=== PATIENT | female | born 1985 | race Caucasian/White ===

== ENCOUNTER 2018-04-15 12:46 | Emergency (ER) | payer BC ==
[2018-04-15 12:52] VITALS: RESP 18
[2018-04-15] MEDS ORDERED: SODIUM CHLORIDE 0.9% 1,000 ML IV STA (13:29)
--- NOTE | 2018-04-15 13:45 | ED ---
Nausea/Vomiting/Diarrhea HPI - General Chief complaint: Nausea/Vomiting/Diarrhea Stated complaint: Diarrhea Time Seen by Provider: 04/15/18 13:29 Source: patient, RN notes reviewed Mode of arrival: ambulatory Limitations: no limitations - History of Present Illness Initial comments: This a 32-year-old female presents emergency Department chief complaint of diarrhea times one week. Patient states initially she was going all day she states she did she did try some Imodium had no relief so she called her PCP prescribed her Lomotil. She states that she did take it and distal to her diarrhea. She did call her PCP today as she was instructed to after one week and told him that he still had symptoms and she is advised to go to the emergency department. Patient states she occasionally has some abdominal cramping but denies any known fever, chills, melena hematochezia. Patient denies any dysuria hematuria. She is status post cholecystectomy in 2009. Patient denies any contacts with some her symptoms denies any recent traveling and no recent antibiotic use. - Related Data Home Medications Medication Instructions Recorded Confirmed Cyanocobalamin (Vitamin B-12) 1,000 mcg PO HS 04/15/18 04/15/18 [Vitamin B-12] Diphenox-Atrop 2.5-0.025 mg 1 - 2 tab PO QID PRN 04/15/18 04/15/18 [Lomotil] Levothyroxine Sodium [Synthroid] 150 mcg PO HS 04/15/18 04/15/18 Losartan [Cozaar] 25 mg PO HS 04/15/18 04/15/18 Norgestimate-Ethinyl Estradiol 1 tab PO HS 04/15/18 04/15/18 [Ortho Tri-Cyclen 28 Tablet] metFORMIN HCL [metFORMIN HCL ER] 1,500 mg PO HS 04/15/18 04/15/18 Allergies Allergy/AdvReac Type Severity Reaction Status Date / Time Sulfa (Sulfonamide Allergy Rash/Hives Verified 04/15/18 13:26 Antibiotics) Review of Systems ROS Statement: Those systems with pertinent positive or pertinent negative responses have been documented in the HPI. ROS Other: All systems not noted in ROS Statement are negative. Past Medical History Past Medical History: Diabetes Mellitus, Thyroid Disorder History of Any Multi-Drug Resistant Organisms: None Reported Past Surgical History: Cholecystectomy Past Psychological History: Depression Smoking Status: Never smoker Past Alcohol Use History: None Reported Past Drug Use History: None Reported General Exam Limitations: no limitations General appearance: alert, in no apparent distress Head exam: Present: atraumatic, normocephalic, normal inspection Respiratory exam: Present: normal lung sounds bilaterally. Absent: respiratory distress, wheezes, rales, rhonchi, stridor Cardiovascular Exam: Present: regular rate, normal rhythm, normal heart sounds. Absent: systolic murmur, diastolic murmur, rubs, gallop, clicks GI/Abdominal exam: Present: soft, normal bowel sounds. Absent: distended, tenderness, guarding, rebound, rigid Back exam: Absent: CVA tenderness (R), CVA tenderness (L) Skin exam: Present: warm, dry, intact, normal color. Absent: rash Course Vital Signs 04/15/18 12:49 Temperature 98.7 F Pulse Rate 75 Respiratory 18 Rate Blood Pressure 137/88 O2 Sat by Pulse 98 Oximetry Medical Decision Making - Medical Decision Making 32-year-old female presented for diarrhea. Patient had lab work was given IV hydration. Patient has normal lab work normal electrolytes. Patient was given a prescription for stool studies. She does have Lomotil at home and which she can take if needed. She may also try [id number] Pepto-Bismol. - Lab Data Result diagrams: 04/15/18 13:50 04/15/18 13:50 Lab Results 04/15/18 04/15/18 04/15/18 Range/Units 13:44 13:44 13:50 WBC (3.8-10.6) k/uL RBC (3.80-5.40) m/uL Hgb (11.4-16.0) gm/dL Hct (34.0-46.0) % MCV (80.0-100.0) fL MCH (25.0-35.0) pg MCHC (31.0-37.0) g/dL RDW (11.5-15.5) % Plt Count (150-450) k/uL Neutrophils % % Lymphocytes % % Monocytes % % Eosinophils % % Basophils % % Neutrophils # (1.3-7.7) k/uL Lymphocytes # (1.0-4.8) k/uL Monocytes # (0-1.0) k/uL Eosinophils # (0-0.7) k/uL Basophils # (0-0.2) k/uL Sodium 138 (137-145) mmol/L Potassium 4.2 (3.5-5.1) mmol/L Chloride 104 (98-107) mmol/L Carbon Dioxide 24 (22-30) mmol/L Anion Gap 10 mmol/L BUN 7 (7-17) mg/dL Creatinine 0.72 (0.52-1.04) mg/dL Est GFR (CKD-EPI)AfAm >90 (>60 ml/min/1.73 sqM) Est GFR (CKD-EPI)NonAf >90 (>60 ml/min/1.73 sqM) Glucose 140 H (74-99) mg/dL Calcium 9.6 (8.4-10.2) mg/dL Total Bilirubin 0.4 (0.2-1.3) mg/dL AST 62 H (14-36) U/L ALT 80 H (9-52) U/L Alkaline Phosphatase 72 (38-126) U/L Total Protein 7.2 (6.3-8.2) g/dL Albumin 4.3 (3.5-5.0) g/dL Amylase 64 (30-110) U/L Lipase 220 (23-300) U/L Urine Color Yellow Urine Appearance Clear (Clear) Urine pH 5.5 (5.0-8.0) Ur Specific [place] 1.015 (1.001-1.035) Urine Protein Trace H (Negative) Urine Glucose (UA) Negative (Negative) Urine Ketones 1+ H (Negative) Urine Blood Negative (Negative) Urine Nitrite Negative (Negative) Urine Bilirubin Negative (Negative) Urine Urobilinogen <2.0 (<2.0) mg/dL Ur Leukocyte Esterase Trace H (Negative) Urine RBC 1 (0-5) /hpf Urine WBC 3 (0-5) /hpf Ur Squamous Epith Cells 2 (0-4) /hpf Amorphous Sediment Rare H (None) /hpf Urine Bacteria Moderate H (None) /hpf Urine Mucus Few H (None) /hpf Urine HCG, Qual Not Detected (Not Detectd) 04/15/18 Range/Units 13:50 WBC 5.3 (3.8-10.6) k/uL RBC 4.50 (3.80-5.40) m/uL Hgb 13.2 (11.4-16.0) gm/dL Hct 39.4 (34.0-46.0) % MCV 87.6 (80.0-100.0) fL MCH 29.4 (25.0-35.0) pg MCHC 33.5 (31.0-37.0) g/dL RDW 13.3 (11.5-15.5) % Plt Count 243 (150-450) k/uL Neutrophils % 61 % Lymphocytes % 28 % Monocytes % 6 % Eosinophils % 1 % Basophils % 1 % Neutrophils # 3.2 (1.3-7.7) k/uL Lymphocytes # 1.5 (1.0-4.8) k/uL Monocytes # 0.3 (0-1.0) k/uL Eosinophils # 0.1 (0-0.7) k/uL Basophils # 0.1 (0-0.2) k/uL Sodium (137-145) mmol/L Potassium (3.5-5.1) mmol/L Chloride (98-107) mmol/L Carbon Dioxide (22-30) mmol/L Anion Gap mmol/L BUN (7-17) mg/dL Creatinine (0.52-1.04) mg/dL Est GFR (CKD-EPI)AfAm (>60 ml/min/1.73 sqM) Est GFR (CKD-EPI)NonAf (>60 ml/min/1.73 sqM) Glucose (74-99) mg/dL Calcium (8.4-10.2) mg/dL Total Bilirubin (0.2-1.3) mg/dL AST (14-36) U/L ALT (9-52) U/L Alkaline Phosphatase (38-126) U/L Total Protein (6.3-8.2) g/dL Albumin (3.5-5.0) g/dL Amylase (30-110) U/L Lipase (23-300) U/L Urine Color Urine Appearance (Clear) Urine pH (5.0-8.0) Ur Specific [place] (1.001-1.035) Urine Protein (Negative) Urine Glucose (UA) (Negative) Urine Ketones (Negative) Urine Blood (Negative) Urine Nitrite (Negative) Urine Bilirubin (Negative) Urine Urobilinogen (<2.0) mg/dL Ur Leukocyte Esterase (Negative) Urine RBC (0-5) /hpf Urine WBC (0-5) /hpf Ur Squamous Epith Cells (0-4) /hpf Amorphous Sediment (None) /hpf Urine Bacteria (None) /hpf Urine Mucus (None) /hpf Urine HCG, Qual (Not Detectd) Disposition Clinical Impression: Diarrhea Disposition: HOME SELF-CARE Condition: Stable Instructions: Acute Diarrhea (ED) Additional Instructions: Please return to the Emergency Department if symptoms worsen or any other concerns. Is patient prescribed a controlled substance at d/c from ED?: No Referrals: Wilbert Alonso MD [Primary Care Provider] - 1-2 days Time of Disposition: 14:45
[2018-04-15 14:06] LABS: Basophils # (A) 0.1 k/uL (0-0.2); Basophils % (A) 1 %; Eosinophils # (A) 0.1 k/uL (0-0.7); Eosinophils % (A) 1 %; HCT 39.4 % (34.0-46.0); HGB 13.2 gm/dL (11.4-16.0); Lymphocytes # (A) 1.5 k/uL (1.0-4.8); Lymphocytes % (A) 28 %; MCH 29.4 pg (25.0-35.0); MCHC 33.5 g/dL (31.0-37.0); MCV 87.6 fL (80.0-100.0); Mean Platelet Volume 7.6; Monocytes # (A) 0.3 k/uL (0-1.0); Monocytes % (A) 6 %; Neutrophils # (A) 3.2 k/uL (1.3-7.7); Neutrophils % (A) 61 %; Platelet Count 243 k/uL (150-450); RDW 13.3 % (11.5-15.5); WBC 5.3 k/uL (3.8-10.6)
[2018-04-15 14:14] LABS: Amorphous Sediment,Urine Rare /hpf; Appearance,Urine Clear (Clear); Bacteria,Urine Moderate /hpf; Bilirubin,Urine Negative (Negative); Blood,Urine Negative (Negative); Color,Urine Yellow; Glucose,Urine (UA) Negative (Negative); Ketones,Urine 1+ (Negative); Leukocyte Esterase,Urine Trace (Negative); Mucus,Urine Few /hpf; Nitrite,Urine Negative (Negative); PH, Urine 5.5 (5.0-8.0); Protein,Urine Trace (Negative); RBC,Urine 1 /hpf (0-5); Specific Gravity,Urine 1.015 (1.001-1.035); Squamous Epithelial Cell,Urine 2 /hpf (0-4); Urobilinogen,Urine <2.0 mg/dL (<2.0); WBC,Urine 3 /hpf (0-5)
[2018-04-15 14:18] LABS: ALT 80 U/L (9-52); AST 62 U/L (14-36); Albumin 4.3 g/dL (3.5-5.0); Alkaline Phosphatase 72 U/L (38-126); Amylase 64 U/L (30-110); Anion Gap 10 mmol/L; Blood Urea Nitrogen 7 mg/dL (7-17); Calcium 9.6 mg/dL (8.4-10.2); Carbon Dioxide 24 mmol/L (22-30); Chloride 104 mmol/L (98-107); Glucose 140 mg/dL (74-99); Lipase 220 U/L (23-300); Potassium 4.2 mmol/L (3.5-5.1); Sodium 138 mmol/L (137-145); Total Bilirubin 0.4 mg/dL (0.2-1.3); Total Protein 7.2 g/dL (6.3-8.2)
[2018-04-15 15:00] VITALS: BP 116/71; PULSE 80; TEMP 98.3
== END 2018-04-15 15:00 | disposition home or self-care (01) ==
LOC: EC 12:46
DX: R19.7 Diarrhea, unspecified (principal); E11.9 Type 2 diabetes mellitus without complications; E07.9 Disorder of thyroid, unspecified; F32.9 Major depressive disorder, single episode, unspecified; Z79.84 Long term (current) use of oral hypoglycemic drugs; Z79.899 Other long term (current) drug therapy; Z88.2 Allergy status to sulfonamides; Z90.49 Acquired absence of other specified parts of digestive tract
CPT/HCPCS: 36415; 80053; 81001; 81025; 82150; 83690; 85025; 96360; 99284

== ENCOUNTER 2020-08-20 11:28 | Emergency (ER) | payer MEDICAID, BC ==
[2020-08-20 11:46] VITALS: RESP 18
[2020-08-20] MEDS ORDERED: SODIUM CHLORIDE 0.9% 500 ML 500 ML IV STA (11:57)
[2020-08-20] MEDS ORDERED: ACETAMINOPHEN TAB 500 MG TAB PO STA (11:57)
[2020-08-20 12:51] LABS: Appearance,Urine Clear (Clear); Bacteria,Urine Many /hpf; Bilirubin,Urine Negative (Negative); Blood,Urine Moderate (Negative); Color,Urine Yellow; Glucose,Urine (UA) Negative (Negative); Ketones,Urine Negative (Negative); Leukocyte Esterase,Urine Negative (Negative); Mucus,Urine Many /hpf; Nitrite,Urine Negative (Negative); PH, Urine 5.5 (5.0-8.0); Protein,Urine 1+ (Negative); RBC,Urine 3 /hpf (0-5); Specific Gravity,Urine 1.035 (1.001-1.035); Squamous Epithelial Cell,Urine 2 /hpf (0-4); Urobilinogen,Urine <2.0 mg/dL (<2.0); WBC,Urine 2 /hpf (0-5)
[2020-08-20 12:52] LABS: Basophils % (A) 1 %; Eosinophils % (A) 0 %; HCT 43.7 % (34.0-46.0); HGB 14.7 gm/dL (11.4-16.0); Lymphocytes # (A) 0.6 k/uL (1.0-4.8); Lymphocytes % (A) 17 %; MCH 30.4 pg (25.0-35.0); MCHC 33.8 g/dL (31.0-37.0); MCV 90.1 fL (80.0-100.0); Mean Platelet Volume 8.9; Monocytes # (A) 0.2 k/uL (0-1.0); Monocytes % (A) 4 %; Neutrophils # (A) 2.9 k/uL (1.3-7.7); Neutrophils % (A) 76 %; Platelet Count 135 k/uL (150-450); RBC 4.85 m/uL (3.80-5.40); RDW 12.3 % (11.5-15.5); WBC 3.8 k/uL (3.8-10.6)
[2020-08-20] MEDS ORDERED: IBUPROFEN 600 MG TAB PO STA (12:57)
[2020-08-20 12:58] LABS: ALT 86 U/L (4-34); AST 86 U/L (14-36); African American GFR (CKD) >90 (>60 ml/min/1.73 sqM); Albumin 4.3 g/dL (3.5-5.0); Alkaline Phosphatase 81 U/L (38-126); Anion Gap 9 mmol/L; Blood Urea Nitrogen 10 mg/dL (7-17); Carbon Dioxide 23 mmol/L (22-30); Chloride 104 mmol/L (98-107); Glucose 247 mg/dL (74-99); Non-African American GFR(CKD) >90 (>60 ml/min/1.73 sqM); Potassium 4.2 mmol/L (3.5-5.1); Sodium 136 mmol/L (137-145); Total Bilirubin 0.6 mg/dL (0.2-1.3); Total Protein 7.6 g/dL (6.3-8.2)
--- NOTE | 2020-08-20 12:58 | ED ---
General Adult HPI - General Chief complaint: Upper Respiratory Infection Stated complaint: SOB Time Seen by Provider: 08/20/20 11:47 Source: patient, RN notes reviewed Mode of arrival: ambulatory Limitations: no limitations - History of Present Illness Initial comments: 34-year-old female presents to the emergency department for a chief complaint of cough and weakness. Patient reports that about one week ago she started to have a lot of body aches and chills. Patient reports she developed a dry cough. She states she felt somewhat short of breath. She states she has had fevers up to 100 throughout the week but they generally go away on their own without medication. Patient has not taken Motrin or Tylenol today. Patient tested negative for Covid on August 17. Patient has no other complaints at this time including shortness of breath, chest pain, abdominal pain, nausea or vomiting, headache, or visual changes. - Related Data Home Medications Medication Instructions Recorded Confirmed Levothyroxine Sodium [Synthroid] 150 mcg PO HS 04/15/18 04/15/18 metFORMIN HCL [metFORMIN HCL ER] 1,500 mg PO HS 04/15/18 04/15/18 Candesartan Cilexetil 12 mg PO DAILY 08/20/20 08/20/20 Dulaglutide [Trulicity] 1.5 mg SQ INGRAM 08/20/20 08/20/20 Levothyroxine Sodium [Synthroid] 175 mcg PO MOTH 08/20/20 08/20/20 Previous Rx's Medication Instructions Recorded Benzonatate [Tessalon Perles] 200 mg PO Q8H PRN #15 capsule 08/20/20 Allergies Allergy/AdvReac Type Severity Reaction Status Date / Time Sulfa (Sulfonamide Allergy Rash/Hives Verified 08/20/20 13:49 Antibiotics) Review of Systems ROS Statement: Those systems with pertinent positive or pertinent negative responses have been documented in the HPI. ROS Other: All systems not noted in ROS Statement are negative. Past Medical History Past Medical History: Diabetes Mellitus, Thyroid Disorder History of Any Multi-Drug Resistant Organisms: None Reported Past Surgical History: Cholecystectomy Past Psychological History: Depression Smoking Status: Never smoker Past Alcohol Use History: None Reported Past Drug Use History: None Reported General Exam Limitations: no limitations General appearance: alert, in no apparent distress Head exam: Present: atraumatic, normocephalic, normal inspection Eye exam: Present: normal appearance, PERRL, EOMI. Absent: scleral icterus, conjunctival injection, periorbital swelling ENT exam: Present: normal exam, mucous membranes moist Neck exam: Present: normal inspection, full ROM. Absent: tenderness, meningismu s, lymphadenopathy Respiratory exam: Present: normal lung sounds bilaterally. Absent: respiratory distress, wheezes, rales, rhonchi, stridor Cardiovascular Exam: Present: regular rate, normal rhythm, normal heart sounds. Absent: bradycardia, tachycardia, irregular rhythm GI/Abdominal exam: Present: soft, normal bowel sounds. Absent: distended, tenderness, guarding, rebound, rigid Neurological exam: Present: alert Course Vital Signs 08/20/20 11:43 Temperature 99.6 F Pulse Rate 119 H Respiratory 18 Rate Blood Pressure 115/82 O2 Sat by Pulse 95 Oximetry EKG Findings - EKG Comments: EKG Findings:: Sinus tachycardia, ventricular rate 101, RI interval 160, QTC 433 Medical Decision Making - Medical Decision Making Vitals are stable. Patient presented with a temperature of 100.8 when I rechecked it. Pulse rate of 119 is reflexive to fever. Patient is well- appearing. She is oxygenating at 95%. Patient was recently negative for Covid 3 days ago. Lung sounds are clear today. No respiratory distress. CBC unremarkable. CMP did show hyperglycemia with a glucose of 247. Patient does take metformin and has a history of NIDDM. Urinalysis unremarkable. Influenza is negative. Chest x-ray shows no acute cardiopulmonary process. There is a 1.6 cm right suprahilar nodule, recommending follow-up chest CT. I did discuss with this patient and she will follow-up. I will repeat patient's Covid test t christopher as well. I recommended she continue Motrin and Tylenol for fevers and return if she has any worsening symptoms such as increased shortness of breath. I discussed this case with attending Dr. Cabrera who agrees with this assessment and treatment plan. - Lab Data Result diagrams: 08/20/20 12:13 08/20/20 12:13 Lab Results 08/20/20 08/20/20 08/20/20 Range/Units 12:13 12:13 12:13 WBC 3.8 (3.8-10.6) k/uL RBC 4.85 (3.80-5.40) m/uL Hgb 14.7 (11.4-16.0) gm/dL Hct 43.7 (34.0-46.0) % MCV 90.1 (80.0-100.0) fL MCH 30.4 (25.0-35.0) pg MCHC 33.8 (31.0-37.0) g/dL RDW 12.3 (11.5-15.5) % Plt Count 135 L (150-450) k/uL MPV 8.9 Neutrophils % 76 % Lymphocytes % 17 % Monocytes % 4 % Eosinophils % 0 % Basophils % 1 % Neutrophils # 2.9 (1.3-7.7) k/uL Lymphocytes # 0.6 L (1.0-4.8) k/uL Monocytes # 0.2 (0-1.0) k/uL Eosinophils # 0.0 (0-0.7) k/uL Basophils # 0.0 (0-0.2) k/uL D-Dimer 0.50 (<0.60) mg/L FEU Sodium (137-145) mmol/L Potassium (3.5-5.1) mmol/L Chloride (98-107) mmol/L Carbon Dioxide (22-30) mmol/L Anion Gap mmol/L BUN (7-17) mg/dL Creatinine (0.52-1.04) mg/dL Est GFR (CKD-EPI)AfAm (>60 ml/min/1.73 sqM) Est GFR (CKD-EPI)NonAf (>60 ml/min/1.73 sqM) Glucose (74-99) mg/dL Calcium (8.4-10.2) mg/dL Total Bilirubin (0.2-1.3) mg/dL AST (14-36) U/L ALT (4-34) U/L Alkaline Phosphatase (38-126) U/L Troponin I (0.000-0.034) ng/mL Total Protein (6.3-8.2) g/dL Albumin (3.5-5.0) g/dL Urine Color Yellow Urine Appearance Clear (Clear) Urine pH 5.5 (5.0-8.0) Ur Specific [place] 1.035 (1.001-1.035) Urine Protein 1+ H (Negative) Urine Glucose (UA) Negative (Negative) Urine Ketones Negative (Negative) Urine Blood Moderate H (Negative) Urine Nitrite Negative (Negative) Urine Bilirubin Negative (Negative) Urine Urobilinogen <2.0 (<2.0) mg/dL Ur Leukocyte Esterase Negative (Negative) Urine RBC 3 (0-5) /hpf Urine WBC 2 (0-5) /hpf Ur Squamous Epith Cells 2 (0-4) /hpf Urine Bacteria Many H (None) /hpf Urine Mucus Many H (None) /hpf Urine HCG, Qual (Not Detectd) Influenza Type A RNA (Not Detectd) Influenza Type B (PCR) (Not Detectd) 08/20/20 08/20/20 08/20/20 Range/Units 12:13 12:13 12:13 WBC (3.8-10.6) k/uL RBC (3.80-5.40) m/uL Hgb (11.4-16.0) gm/dL Hct (34.0-46.0) % MCV (80.0-100.0) fL MCH (25.0-35.0) pg MCHC (31.0-37.0) g/dL RDW (11.5-15.5) % Plt Count (150-450) k/uL MPV Neutrophils % % Lymphocytes % % Monocytes % % Eosinophils % % Basophils % % Neutrophils # (1.3-7.7) k/uL Lymphocytes # (1.0-4.8) k/uL Monocytes # (0-1.0) k/uL Eosinophils # (0-0.7) k/uL Basophils # (0-0.2) k/uL D-Dimer (<0.60) mg/L FEU Sodium 136 L (137-145) mmol/L Potassium 4.2 (3.5-5.1) mmol/L Chloride 104 (98-107) mmol/L Carbon Dioxide 23 (22-30) mmol/L Anion Gap 9 mmol/L BUN 10 (7-17) mg/dL Creatinine 0.72 (0.52-1.04) mg/dL Est GFR (CKD-EPI)AfAm >90 (>60 ml/min/1.73 sqM) Est GFR (CKD-EPI)NonAf >90 (>60 ml/min/1.73 sqM) Glucose 247 H (74-99) mg/dL Calcium 9.0 (8.4-10.2) mg/dL Total Bilirubin 0.6 (0.2-1.3) mg/dL AST 86 H (14-36) U/L ALT 86 H (4-34) U/L Alkaline Phosphatase 81 (38-126) U/L Troponin I <0.012 (0.000-0.034) ng/mL Total Protein 7.6 (6.3-8.2) g/dL Albumin 4.3 (3.5-5.0) g/dL Urine Color Urine Appearance (Clear) Urine pH (5.0-8.0) Ur Specific [place] (1.001-1.035) Urine Protein (Negative) Urine Glucose (UA) (Negative) Urine Ketones (Negative) Urine Blood (Negative) Urine Nitrite (Negative) Urine Bilirubin (Negative) Urine Urobilinogen (<2.0) mg/dL Ur Leukocyte Esterase (Negative) Urine RBC (0-5) /hpf Urine WBC (0-5) /hpf Ur Squamous Epith Cells (0-4) /hpf Urine Bacteria (None) /hpf Urine Mucus (None) /hpf Urine HCG, Qual (Not Detectd) Influenza Type A RNA Not Detected (Not Detectd) Influenza Type B (PCR) Not Detected (Not Detectd) 08/20/20 Range/Units 12:13 WBC (3.8-10.6) k/uL RBC (3.80-5.40) m/uL Hgb (11.4-16.0) gm/dL Hct (34.0-46.0) % MCV (80.0-100.0) fL MCH (25.0-35.0) pg MCHC (31.0-37.0) g/dL RDW (11.5-15.5) % Plt Count (150-450) k/uL MPV Neutrophils % % Lymphocytes % % Monocytes % % Eosinophils % % Basophils % % Neutrophils # (1.3-7.7) k/uL Lymphocytes # (1.0-4.8) k/uL Monocytes # (0-1.0) k/uL Eosinophils # (0-0.7) k/uL Basophils # (0-0.2) k/uL D-Dimer (<0.60) mg/L FEU Sodium (137-145) mmol/L Potassium (3.5-5.1) mmol/L Chloride (98-107) mmol/L Carbon Dioxide (22-30) mmol/L Anion Gap mmol/L BUN (7-17) mg/dL Creatinine (0.52-1.04) mg/dL Est GFR (CKD-EPI)AfAm (>60 ml/min/1.73 sqM) Est GFR (CKD-EPI)NonAf (>60 ml/min/1.73 sqM) Glucose (74-99) mg/dL Calcium (8.4-10.2) mg/dL Total Bilirubin (0.2-1.3) mg/dL AST (14-36) U/L ALT (4-34) U/L Alkaline Phosphatase (38-126) U/L Troponin I (0.000-0.034) ng/mL Total Protein (6.3-8.2) g/dL Albumin (3.5-5.0) g/dL Urine Color Urine Appearance (Clear) Urine pH (5.0-8.0) Ur Specific [place] (1.001-1.035) Urine Protein (Negative) Urine Glucose (UA) (Negative) Urine Ketones (Negative) Urine Blood (Negative) Urine Nitrite (Negative) Urine Bilirubin (Negative) Urine Urobilinogen (<2.0) mg/dL Ur Leukocyte Esterase (Negative) Urine RBC (0-5) /hpf Urine WBC (0-5) /hpf Ur Squamous Epith Cells (0-4) /hpf Urine Bacteria (None) /hpf Urine Mucus (None) /hpf Urine HCG, Qual Not Detected (Not Detectd) Influenza Type A RNA (Not Detectd) Influenza Type B (PCR) (Not Detectd) Disposition Clinical Impression: Cough Disposition: HOME SELF-CARE Condition: Good Instructions (If sedation given, give patient instructions): Upper Respiratory Infection (ED) Additional Instructions: Please take cough medication as directed. Drink plenty of fluids. Take Motrin and Tylenol as needed for fever. Follow-up with your doctor in one to 2 days. Return to the emergency room for any worsening symptoms. Continue to quarantine until symptoms improve. Prescriptions: Benzonatate [Tessalon Perles] 200 mg PO Q8H PRN #15 capsule PRN Reason: Cough Is patient prescribed a controlled substance at d/c from ED?: No Referrals: Akosua,Joe, DO [Primary Care Provider] - 1-2 days Time of Disposition: 13:50
--- NOTE | 2020-08-20 13:17 | XR ---
EXAMINATION TYPE: XR chest 2V DATE OF EXAM: 08/20/2020 CLINICAL HISTORY: Body aches and fatigue. TECHNIQUE: Frontal and lateral views of the chest are obtained. COMPARISON: None FINDINGS: There is mild reticular interstitial changes without suspicious focal air space opacity, p leural effusion, or pneumothorax seen. There is 1.6 cm right suprahilar nodule on frontal view less well seen on lateral view. Follow-up chest CT should be considered. The cardiac silhouette size is wi thin normal limits. The osseous structures are intact. IMPRESSION: No acute cardiopulmonary process.
[2020-08-20 13:50] VITALS: BP 109/65; PULSE 86; TEMP 98.1
== END 2020-08-20 14:23 | disposition home or self-care (01) ==
LOC: EC 11:28
DX: U07.1 COVID-19 (principal); E11.65 Type 2 diabetes mellitus with hyperglycemia; R91.1 Solitary pulmonary nodule; E07.9 Disorder of thyroid, unspecified; Z79.890 Hormone replacement therapy; Z79.84 Long term (current) use of oral hypoglycemic drugs; Z79.899 Other long term (current) drug therapy; Z88.2 Allergy status to sulfonamides
CPT/HCPCS: 36415; 93005; 85379; 80053; 84484; 85025; 81001; 81025; 87502; 71046; 99284; 96360; U0003

== ENCOUNTER 2020-08-24 14:00 | Inpatient (IN) | payer MEDICAID, BC ==
[2020-08-24] MEDS ORDERED: ACETAMINOPHEN TAB 325 MG TAB PO STA (14:19)
[2020-08-24] MEDS ORDERED: SODIUM CHLORIDE 0.9% 500 ML 500 ML IV ONE (14:19)
[2020-08-24] MEDS ORDERED: SODIUM CHLORIDE 0.9% 1,000 ML IV ONE ×2 (14:19→15:25)
--- NOTE | 2020-08-24 14:52 | XR ---
EXAMINATION TYPE: XR chest 1V portable DATE OF EXAM: 08/24/2020 COMPARISON: 08/20/2020 HISTORY: Increased shortness of breath TECHNIQUE: Single frontal view of the chest is obtained. FINDINGS: There is subsegmental consolidation at the left lung base with a slightly prominent centra l interstitium in a 1.5 cm nodule the right upper lobe. Stable from prior exam. No pneumothorax. No o vert failure. IMPRESSION: 1. 1.5 cm right upper lobe mass. A chest recommended on a short-term basis. 2. Basilar infiltrate versus atelectasis correlate for early pneumonia.
[2020-08-24 14:56] LABS: Basophils % (A) 1 %; Eosinophils % (A) 1 %; HGB 14.4 gm/dL (11.4-16.0); Lymphocytes # (A) 0.7 k/uL (1.0-4.8); Lymphocytes % (A) 18 %; MCH 29.9 pg (25.0-35.0); MCHC 32.6 g/dL (31.0-37.0); MCV 91.6 fL (80.0-100.0); Mean Platelet Volume 8.5; Monocytes # (A) 0.2 k/uL (0-1.0); Monocytes % (A) 5 %; Neutrophils % (A) 74 %; Platelet Count 240 k/uL (150-450); RDW 12.7 % (11.5-15.5)
[2020-08-24 15:07] LABS: ALT 57 U/L (4-34); AST 47 U/L (14-36); African American GFR (CKD) >90 (>60 ml/min/1.73 sqM); Albumin 4.3 g/dL (3.5-5.0); Alkaline Phosphatase 86 U/L (38-126); Anion Gap 12 mmol/L; Blood Urea Nitrogen 16 mg/dL (7-17); C Reactive Protein 43.4 mg/L (<10.0); Calcium 10.2 mg/dL (8.4-10.2); Carbon Dioxide 22 mmol/L (22-30); Chloride 104 mmol/L (98-107); LDH 559 U/L (313-618); Non-African American GFR(CKD) >90 (>60 ml/min/1.73 sqM); Potassium 4.8 mmol/L (3.5-5.1); Sodium 138 mmol/L (137-145); Total Bilirubin 0.6 mg/dL (0.2-1.3); Total Protein 7.7 g/dL (6.3-8.2)
[2020-08-24 15:11] LABS: Glucose 578 mg/dL (74-99)
[2020-08-24 15:12] LABS: Appearance,Urine Clear (Clear); Bilirubin,Urine Negative (Negative); Blood,Urine Negative (Negative); Color,Urine Light Yellow; Glucose,Urine (UA) 4+ (Negative); Ketones,Urine 1+ (Negative); Leukocyte Esterase,Urine Negative (Negative); Nitrite,Urine Negative (Negative); PH, Urine 5.5 (5.0-8.0); Protein,Urine Trace (Negative); Specific Gravity,Urine 1.036 (1.001-1.035); Urobilinogen,Urine <2.0 mg/dL (<2.0)
[2020-08-24 15:17] LABS: D-Dimer 0.31 mg/L FEU (<0.60); INR 0.9 (<1.2); Partial Thromboplastin Time 22.8 sec (22.0-30.0); Prothrombin Time 9.5 sec (9.0-12.0)
[2020-08-24] MEDS ORDERED: INSULIN REGULAR 100 UNIT/ML VIAL IV ONE (15:25)
--- NOTE | 2020-08-24 15:27 | ED ---
SOB HPI - General Chief Complaint: Shortness of Breath Stated Complaint: SOB COVID+ Time Seen by Provider: 08/24/20 14:06 Source: patient Mode of arrival: ambulatory Limitations: no limitations - History of Present Illness Initial Comments: 34-year-old female presents today for chief complaint of shortness of breath, cold with positive. Patient states she's had increasing shortness of breath since she's been diagnosed with Coban. She states she has a cough and at times chest pain she denies current chest pain she denies hemoptysis leg swelling. Sh e denies nausea vomiting abdominal pain but admits to loose stools. Patient states she has decreased taste and smell patient states she has not been sleeping well for the past 3 nights. Patient states she is a diabetic type II takes metformin and has been on steroids lately for the Coban 19 infection. Patient states she does not check her sugars daily. Remaining review of system negative - Related Data Home Medications Medication Instructions Recorded Confirmed Levothyroxine Sodium [Synthroid] 150 mcg PO [id number] 04/15/18 08/24/20 metFORMIN HCL [metFORMIN HCL ER] 750 mg PO BID 04/15/18 08/24/20 Candesartan Cilexetil 12 mg PO DAILY 08/20/20 08/24/20 Dulaglutide [Trulicity] 1.5 mg SQ INGRAM 08/20/20 08/24/20 Levothyroxine Sodium [Synthroid] 175 mcg PO MOTH 08/20/20 08/24/20 Albuterol Inhaler [Ventolin Hfa 2 puff INHALATION RT-QID 08/24/20 08/24/20 Inhaler] Azithromycin [Zithromax Z-pack (6 See Taper PO DIRECTED 08/24/20 08/24/20 tabs)] methylPREDNISolone [Medrol Dose See Taper PO DIRECTED 08/24/20 08/24/20 Pack] Previous Rx's Medication Instructions Recorded Benzonatate [Tessalon Perles] 200 mg PO Q8H PRN #15 capsule 08/20/20 Allergies Allergy/AdvReac Type Severity Reaction Status Date / Time Sulfa (Sulfonamide Allergy Rash/Hives Verified 08/24/20 15:33 Antibiotics) Review of Systems ROS Statement: Those systems with pertinent positive or pertinent negative responses have been documented in the HPI. ROS Other: All systems not noted in ROS Statement are negative. Past Medical History Past Medical History: Diabetes Mellitus, Thyroid Disorder History of Any Multi-Drug Resistant Organisms: None Reported Past Surgical History: Cholecystectomy Past Psychological History: Depression Smoking Status: Never smoker Past Alcohol Use History: None Reported Past Drug Use History: None Reported General Exam - General Exam Comments Initial Comments: General: The patient is awake and alert Eye: Pupils are equal, round and reactive to light, extra-ocular movements are intact. No nystagmus. There is normal conjunctiva bilaterally. No signs of icterus. Ears, nose, mouth and throat: There are moist mucous membranes and no oral lesions. Neck: The neck is supple, there is no tenderness or JVD. Cardiovascular: There is a regular rate and rhythm. No murmur, rub or gallop is appreciated. Respiratory: Lung sounds diminished throughout. respirations are mildly- labored, breath sounds are equal. No wheezes, stridor, rales. Rhonchi Gastrointestinal: Soft, non-distended, non-tender abdomen without masses or organomegaly noted. There is no rebound or guarding present. Musculoskeletal: Normal ROM, no tenderness. Strength 5/5. Sensation intact. Radial and DP pulses equal bilaterally 2+. Neurological: A&O x 3. CN II-XII intact, There are no obvious motor or sensory deficits. Coordination appears grossly intact. Speech is normal. Skin: Skin is warm and dry and no rashes or lesions are noted. No calf pain LE edema or calf swelling Psychiatric: Cooperative, appropriate mood & affect, normal judgment. Limitations: no limitations Course Vital Signs 08/24/20 08/24/20 14:01 15:48 Temperature 98.3 F 98.7 F Pulse Rate 121 H 80 Respiratory 24 18 Rate Blood Pressure 140/83 126/91 O2 Sat by Pulse 91 L 98 Oximetry Medical Decision Making - Medical Decision Making covid +. dyspnea. Sugar elevated, pt recently prescribed steroids, and is DMII. Patient Givne insulin. acetone (-). mild elevation of gap. pt given IVF. Patient glucose will be monitored as well as oxygen saturation and respiratory status. pt agreeable to admission as is attending provider Dr. Moon Ventricular rate 86 bpm, WA interval 168 ms, QRS latter day 96 ms, QT/QTC 352/421 ms. This is normal sinus no ST elevation or depression is appreciated. - Lab Data Result diagrams: 08/24/20 14:34 08/24/20 14:34 Lab Results 08/24/20 08/24/20 08/24/20 Range/Units 14:34 14:34 14:34 WBC 4.0 (3.8-10.6) k/uL RBC 4.80 (3.80-5.40) m/uL Hgb 14.4 (11.4-16.0) gm/dL Hct 44.0 (34.0-46.0) % MCV 91.6 (80.0-100.0) fL MCH 29.9 (25.0-35.0) pg MCHC 32.6 (31.0-37.0) g/dL RDW 12.7 (11.5-15.5) % Plt Count 240 (150-450) k/uL MPV 8.5 Neutrophils % 74 % Lymphocytes % 18 % Monocytes % 5 % Eosinophils % 1 % Basophils % 1 % Neutrophils # 3.0 (1.3-7.7) k/uL Lymphocytes # 0.7 L (1.0-4.8) k/uL Monocytes # 0.2 (0-1.0) k/uL Eosinophils # 0.0 (0-0.7) k/uL Basophils # 0.0 (0-0.2) k/uL PT 9.5 (9.0-12.0) sec INR 0.9 (<1.2) APTT 22.8 (22.0-30.0) sec D-Dimer 0.31 (<0.60) mg/L FEU Sodium 138 (137-145) mmol/L Potassium 4.8 (3.5-5.1) mmol/L Chloride 104 (98-107) mmol/L Carbon Dioxide 22 (22-30) mmol/L Anion Gap 12 mmol/L BUN 16 (7-17) mg/dL Creatinine 0.66 (0.52-1.04) mg/dL Est GFR (CKD-EPI)AfAm >90 (>60 ml/min/1.73 sqM) Est GFR (CKD-EPI)NonAf >90 (>60 ml/min/1.73 sqM) Glucose 578 H* (74-99) mg/dL POC Glucose (mg/dL) (75-99) mg/dL POC Glu Client Engagement Specialist ID Lactic Ac Sepsis Rflx Plasma Lactic Acid Anthony (0.7-2.0) mmol/L Calcium 10.2 (8.4-10.2) mg/dL Magnesium 2.0 (1.6-2.3) mg/dL Total Bilirubin 0.6 (0.2-1.3) mg/dL AST 47 H (14-36) U/L ALT 57 H (4-34) U/L Alkaline Phosphatase 86 (38-126) U/L Lactate Dehydrogenase 559 (313-618) U/L Troponin I (0.000-0.034) ng/mL C-Reactive Protein 43.4 H (<10.0) mg/L Total Protein 7.7 (6.3-8.2) g/dL Albumin 4.3 (3.5-5.0) g/dL Urine Color Urine Appearance (Clear) Urine pH (5.0-8.0) Ur Specific Winston (1.001-1.035) Urine Protein (Negative) Urine Glucose (UA) (Negative) Urine Ketones (Negative) Urine Blood (Negative) Urine Nitrite (Negative) Urine Bilirubin (Negative) Urine Urobilinogen (<2.0) mg/dL Ur Leukocyte Esterase (Negative) Urine HCG, Qual (Not Detectd) Acetone, Qual Negative (Negative) 08/24/20 08/24/20 08/24/20 Range/Units 14:34 14:34 14:41 WBC (3.8-10.6) k/uL RBC (3.80-5.40) m/uL Hgb (11.4-16.0) gm/dL Hct (34.0-46.0) % MCV (80.0-100.0) fL MCH (25.0-35.0) pg MCHC (31.0-37.0) g/dL RDW (11.5-15.5) % Plt Count (150-450) k/uL MPV Neutrophils % % Lymphocytes % % Monocytes % % Eosinophils % % Basophils % % Neutrophils # (1.3-7.7) k/uL Lymphocytes # (1.0-4.8) k/uL Monocytes # (0-1.0) k/uL Eosinophils # (0-0.7) k/uL Basophils # (0-0.2) k/uL PT (9.0-12.0) sec INR (<1.2) APTT (22.0-30.0) sec D-Dimer (<0.60) mg/L FEU Sodium (137-145) mmol/L Potassium (3.5-5.1) mmol/L Chloride (98-107) mmol/L Carbon Dioxide (22-30) mmol/L Anion Gap mmol/L BUN (7-17) mg/dL Creatinine (0.52-1.04) mg/dL Est GFR (CKD-EPI)AfAm (>60 ml/min/1.73 sqM) Est GFR (CKD-EPI)NonAf (>60 ml/min/1.73 sqM) Glucose (74-99) mg/dL POC Glucose (mg/dL) (75-99) mg/dL POC Glu Client Engagement Specialist ID Lactic Ac Sepsis Rflx Plasma Lactic Acid Anthony 2.6 H* (0.7-2.0) mmol/L Calcium (8.4-10.2) mg/dL Magnesium (1.6-2.3) mg/dL Total Bilirubin (0.2-1.3) mg/dL AST (14-36) U/L ALT (4-34) U/L Alkaline Phosphatase (38-126) U/L Lactate Dehydrogenase (313-618) U/L Troponin I <0.012 (0.000-0.034) ng/mL C-Reactive Protein (<10.0) mg/L Total Protein (6.3-8.2) g/dL Albumin (3.5-5.0) g/dL Urine Color Light Yellow Urine Appearance Clear (Clear) Urine pH 5.5 (5.0-8.0) Ur Specific Winston 1.036 H (1.001-1.035) Urine Protein Trace H (Negative) Urine Glucose (UA) 4+ H (Negative) Urine Ketones 1+ H (Negative) Urine Blood Negative (Negative) Urine Nitrite Negative (Negative) Urine Bilirubin Negative (Negative) Urine Urobilinogen <2.0 (<2.0) mg/dL Ur Leukocyte Esterase Negative (Negative) Urine HCG, Qual (Not Detectd) Acetone, Qual (Negative) 08/24/20 08/24/20 08/24/20 Range/Units 14:41 15:07 16:05 WBC (3.8-10.6) k/uL RBC (3.80-5.40) m/uL Hgb (11.4-16.0) gm/dL Hct (34.0-46.0) % MCV (80.0-100.0) fL MCH (25.0-35.0) pg MCHC (31.0-37.0) g/dL RDW (11.5-15.5) % Plt Count (150-450) k/uL MPV Neutrophils % % Lymphocytes % % Monocytes % % Eosinophils % % Basophils % % Neutrophils # (1.3-7.7) k/uL Lymphocytes # (1.0-4.8) k/uL Monocytes # (0-1.0) k/uL Eosinophils # (0-0.7) k/uL Basophils # (0-0.2) k/uL PT (9.0-12.0) sec INR (<1.2) APTT (22.0-30.0) sec D-Dimer (<0.60) mg/L FEU Sodium (137-145) mmol/L Potassium (3.5-5.1) mmol/L Chloride (98-107) mmol/L Carbon Dioxide (22-30) mmol/L Anion Gap mmol/L BUN (7-17) mg/dL Creatinine (0.52-1.04) mg/dL Est GFR (CKD-EPI)AfAm (>60 ml/min/1.73 sqM) Est GFR (CKD-EPI)NonAf (>60 ml/min/1.73 sqM) Glucose (74-99) mg/dL POC Glucose (mg/dL) 492 H (75-99) mg/dL POC Glu Client Engagement Specialist ID Luis Felipe Brewer Lactic Ac Sepsis Rflx Y Plasma Lactic Acid Anthony (0.7-2.0) mmol/L Calcium (8.4-10.2) mg/dL Magnesium (1.6-2.3) mg/dL Total Bilirubin (0.2-1.3) mg/dL AST (14-36) U/L ALT (4-34) U/L Alkaline Phosphatase (38-126) U/L Lactate Dehydrogenase (313-618) U/L Troponin I (0.000-0.034) ng/mL C-Reactive Protein (<10.0) mg/L Total Protein (6.3-8.2) g/dL Albumin (3.5-5.0) g/dL Urine Color Urine Appearance (Clear) Urine pH (5.0-8.0) Ur Specific Winston (1.001-1.035) Urine Protein (Negative) Urine Glucose (UA) (Negative) Urine Ketones (Negative) Urine Blood (Negative) Urine Nitrite (Negative) Urine Bilirubin (Negative) Urine Urobilinogen (<2.0) mg/dL Ur Leukocyte Esterase (Negative) Urine HCG, Qual Not Detected (Not Detectd) Acetone, Qual (Negative) Disposition Clinical Impression: Dyspnea, COVID-19, Hypoxia Disposition: ADMITTED IP TO THIS [facility] Condition: Stable Is patient prescribed a controlled substance at d/c from ED?: No Time of Disposition: 16:41 Decision to Admit Reason: Admit from EC Decision Date: 08/24/20 Decision Time: 16:41
[2020-08-24 16:07] LABS: Glucose,Whole Blood 492 mg/dL (75-99)
[2020-08-24] MEDS ORDERED: NALOXONE 0.4 MG/ML 1 ML VIAL IV PRN (16:39)
[2020-08-24 17:02] LABS: Glucose,Whole Blood 401 mg/dL (75-99)
[2020-08-24] MEDS ORDERED: INSULIN REGULAR 100 UNIT/ML VIAL SQ ONE (17:26)
[2020-08-24 18:35] LABS: Glucose,Whole Blood 364 mg/dL (75-99)
[2020-08-24] MEDS ORDERED: INSULIN ASPART (NovoLOG) 100 UNIT/ML VIAL SQ ONE (18:35)
[2020-08-24] MEDS ORDERED: BENZONATATE 100 MG CAP PO PRN (18:35)
[2020-08-24] MEDS ORDERED: LEVOTHYROXINE 75 MCG TAB PO SCH (18:45)
[2020-08-24] MEDS ORDERED: HYDROcodone/APAP 5-325MG 1 EACH TAB PO PRN (19:18)
[2020-08-24] MEDS ORDERED: TEMAZEPAM 15 MG CAP PO PRN (19:18)
[2020-08-24] MEDS ORDERED: ALPRAZolam 0.25 MG TAB PO PRN (19:18)
[2020-08-24] MEDS ORDERED: HYDROmorphone 0.5 MG/0.5 ML SYRINGE IVP PRN (19:18)
--- NOTE | 2020-08-24 20:16 | CT ---
EXAMINATION TYPE: CT chest wo con DATE OF EXAM: 08/24/2020 COMPARISON: None HISTORY: +covid, cough, SOB CT DLP: 397.4 mGycm Automated exposure control for dose reduction was used. There is 1.5 cm noncalcified nodule in the anterior segment right upper lobe adjacent to the pleura. Margins are very sharp. There is some patchy atelectasis at the lung bases. There are no hilar masses . There is 12 mm paratracheal lymph node. Heart size is normal. There is no pericardial effusion. The re is diffuse fatty infiltration of the liver. The thoracic spine is intact. There is no compression fracture. Liver appears enlarged. There is some elevation of the right diaphragm. IMPRESSION: Bilateral lower lobe linear infiltrate and atelectasis. Right upper lobe mass is sharply marginated a nd could be large granuloma. Normal heart. Recommend comparison with any old available exam.
[2020-08-24] MEDS: ALBUTEROL HFA INHALER INHALATION SCH (20:20)
[2020-08-24] MEDS: FAMOTIDINE 20 MG TAB PO SCH (20:25)
[2020-08-24] MEDS: ENOXAPARIN 40 MG/0.4 ML SYRINGE SQ SCH (20:25)
[2020-08-24] MEDS: metFORMIN 500 MG TAB PO SCH (20:25)
[2020-08-24] MEDS: SODIUM CHLORIDE 0.9% 1,000 ML IV SCH ×2 (20:26→22:27)
[2020-08-24] MEDS: dexAMETHasone 2 MG TAB PO SCH (20:35)
[2020-08-24] MEDS: ZINC SULFATE 220 MG CAP PO SCH (20:36)
[2020-08-24 20:59] LABS: Glucose,Whole Blood 462 mg/dL (75-99)
--- NOTE | 2020-08-24 21:04 | HP ---
HISTORY AND PHYSICAL DATE OF SERVICE: 08/24/2020 CHIEF COMPLAINT: Shortness of breath and cough. HISTORY OF PRESENT ILLNESS: This 34-year-old woman with a past medical history of multiple medical problems including diabetes mellitus, hypothyroidism, being followed by Dr. South in the outpatient setting, was not feeling well over the past several days. Patient had shortness of breath and some cold symptoms. The patient was found to be Covid positive and because of increasing difficulties, the patient came to [facility] and was admitted for further evaluation and treatment. In the ER, the evaluation showed evidence of extremely elevated blood sugars at 578 and plasma lactic acid 2.6. Ketones, are negative and there is no acidosis. The patient was given insulin. The glucose improved to 492 and 364 at this time. A D-dimer was found to be negative. The chest x-ray which was done at the time of admission and personally reviewed by me, showed minimal infiltrates and right lung nodule also. There is no history of fever, rigors or chills. No history of headache, loss of conscious or seizures at this time. PAST MEDICAL HISTORY: Diabetes, hypothyroidism, history of depression. MEDICATIONS: Home medications are: Medrol Dosepak, Zithromax, Ventolin, metformin, Synthroid, candesartan, Tessalon and Trulicity. ALLERGIES: SULFA. FAMILY HISTORY: History of diabetes in the family. SOCIAL HISTORY: No history of smoking. No history of alcohol intake. REVIEW OF SYSTEMS: ENT: No diminished vision. No diminished hearing. CARDIOVASCULAR: No angina or palpitations. RESPIRATORY: As mentioned earlier. GI no nausea or vomiting. no dysuria. NERVOUS SYSTEM: No numbness or weakness. ALLERGY/IMMUNOLOGY: No asthma or hayfever. MUSCULOSKELETAL as mentioned earlier. HEMATOLOGY/ONCOLOGY: No history of anemia. ENDOCRINE: No history of diabetes or hypothyroidism. CONSTITUTIONAL: As mentioned earlier. DERMATOLOGY negative. RHEUMATOLOGY: Negative. PSYCHIATRIC: As mentioned earlier. PHYSICAL EXAM: Patient is alert, oriented x 3. Pulse is 121, blood pressure 140/83, respiration 20, temperature 98.3, pulse ox 92% on room air. HEENT: Conjunctivae normal. Oral mucosa moist. NECK is no jugular venous distention. No carotid bruit. No lymph node enlargement. CARDIOVASCULAR system: S1, S2 muffled. RESPIRATORY: Breath sounds diminished in the bases. Bilateral scattered rhonchi and crackles. ABDOMEN: Soft, nontender. LEGS are no edema. No swelling. NERVOUS SYSTEM: Higher functions as mentioned earlier. Moves all 4 limbs. No focal motor or sensory deficits. LYMPHATICS: No lymph nodes palpable in the neck, axillae or groin. SKIN: No ulcers, no rashes and no bleeding. JOINTS no active deforming arthropathy. LABS: CBC within normal limits. PT/INR noted. D-dimer is 0.31. Glucose is 578. Plasma lactic acid 2.6. AST and ALT elevated. ASSESSMENT: 1. Acute COVID-19 infection and possible bilateral pneumonia with possible hypoxic and acute hypoxic respiratory failure with sepsis. 2. Diabetes mellitus type 2, uncontrolled with hyperosmolar state with no evidence of diabetic ketoacidosis. 3. Elevated plasma lactic acid secondary to sepsis. 4. Increased AST, ALT with hepatitis of undetermined origin. 5. Increased CRP. 6. History of diabetes mellitus type 2. 7. History of hypothyroidism. 8. History of cholecystectomy. 9. History of depression. 10.FULL CODE. RECOMMENDATIONS AND DISCUSSION: In this 34-year-old woman who presented with multiple complex medical issues, we will monitor the patient closely. Continue the current medications, management and symptomatic treatment. We will initiate conservative line of management of Covid including Lovenox, dexamethasone, zinc and vitamin D and C. consult Dr. Castro. I would also recommend a CT scan of chest without IV contrast. D-dimer is negative. Overall, as far as the blood sugars are concerned, I would recommend continue the insulin and the sugars. If the blood sugars are persistently more than 300 and 400, the patient have to be started on IV insulin drip. Otherwise, prognosis guarded because of multiple complex medical issues. Further recommendations to follow. A copy of this dictation being forwarded to Dr. South who is the primary physician. MMODL / IJN: [id number] /
[2020-08-24] MEDS: INSULIN ASPART (NovoLOG) 100 UNIT/ML VIAL SQ SCH (22:26)
[2020-08-25 01:51] LABS: Ferritin 267.1 ng/mL (10.0-291.0)
[2020-08-25 02:05] LABS: Glucose,Whole Blood 323 mg/dL (75-99)
[2020-08-25] MEDS: SODIUM CHLORIDE 0.9% 1,000 ML IV SCH ×3 (05:58→18:19)
[2020-08-25] MEDS: LEVOTHYROXINE 88 MCG TAB PO SCH (06:18)
[2020-08-25 07:16] LABS: Glucose,Whole Blood 332 mg/dL (75-99)
[2020-08-25] MEDS: ALBUTEROL HFA INHALER INHALATION SCH ×4 (08:16→22:37)
[2020-08-25] MEDS: FAMOTIDINE 20 MG TAB PO SCH ×2 (08:53→20:07)
[2020-08-25] MEDS: INSULIN ASPART (NovoLOG) 100 UNIT/ML VIAL SQ SCH ×3 (08:53→17:48)
[2020-08-25] MEDS: CHOLECALCIFEROL 1,000 UNIT TAB PO SCH (08:53)
[2020-08-25] MEDS: LOSARTAN 25 MG TAB PO SCH (08:55)
[2020-08-25] MEDS: ASCORBIC ACID 500 MG TAB PO SCH (08:55)
[2020-08-25] MEDS: dexAMETHasone 2 MG TAB PO SCH (08:55)
[2020-08-25] MEDS: metFORMIN 500 MG TAB PO SCH ×2 (08:56→20:07)
[2020-08-25] MEDS: ZINC SULFATE 220 MG CAP PO SCH (08:57)
[2020-08-25 09:55] LABS: Basophils % (A) 0 %; Eosinophils % (A) 0 %; HCT 38.6 % (34.0-46.0); HGB 12.3 gm/dL (11.4-16.0); Lymphocytes # (A) 0.8 k/uL (1.0-4.8); Lymphocytes % (A) 14 %; MCH 29.8 pg (25.0-35.0); MCV 93.1 fL (80.0-100.0); Mean Platelet Volume 8.2; Monocytes # (A) 0.1 k/uL (0-1.0); Monocytes % (A) 2 %; Neutrophils # (A) 4.6 k/uL (1.3-7.7); Neutrophils % (A) 82 %; Platelet Count 213 k/uL (150-450); RBC 4.15 m/uL (3.80-5.40); RDW 12.7 % (11.5-15.5); WBC 5.6 k/uL (3.8-10.6)
--- NOTE | 2020-08-25 10:38 | ECHOF ---
Referral Reason:sob MEASUREMENTS -------- HEIGHT: 172.7 cm WEIGHT: 89.8 kg BP: RVIDd: 2.0 cm (< 3.3) IVSd: 0.9 cm (0.6 - 1.1) LVIDd: 3.8 cm (3.9 - 5.3) LVPWd: 1.2 cm (0.6 - 1.1) IVSs: 1.5 cm LVIDs: 2.8 cm LVPWs: 1.5 cm LAESV Index (A-L): 13.68 ml/m Ao Diam: 2.5 cm (2.0 - 3.7) AV Cusp: 1.9 cm (1.5 - 2.6) LA Diam: 2.9 cm (2.7 - 3.8) MV EXCURSION: 17.153 mm (> 18.000) MV EF SLOPE: 159 mm/s (70 - 150) EPSS: 0.4 cm MV E Jaquan: 0.84 m/s MV DecT: 272 ms MV A Jaquan: 0.35 m/s MV E/A Ratio: 2.41 RAP: 5.00 mmHg RVSP: 18.63 mmHg FINDINGS -------- Sinus rhythm. This was a technically adequate study. The left ventricular size is normal. Left ventricular wall thickness is normal. There is normal g lobal left ventricular contractility. Overall left ventricular systolic function is normal with, an EF between 55 - 60 %. The diastolic filling pattern is normal for the age of the patient 5.68. The right ventricle is normal in size. Normal LA size by volume 22+/-6 ml/m2. The right atrial size is normal. The aortic valve is trileaflet, and appears structurally normal. No aortic stenosis or regurgitation. The mitral valve is normal. There is trace mitral regurgitation. The tricuspid valve appears structurally normal. Trace tricuspid regurgitation present. Right olivier tricular systolic pressure is normal at < 35 mmHg. There is no pulmonic regurgitation present. The aortic root size is normal. Normal inferior vena cava with normal inspiratory collapse consistent with estimated right atrial pre ssure of 5 mmHg. There is no pericardial effusion. CONCLUSIONS -------- 1. Overall left ventricular systolic function is normal with, an EF between 55 - 60 %. 2. The diastolic filling pattern is normal for the age of the patient 5.68 3. Normal LA size by volume 22+/-6 ml/m2. 4. The aortic valve is trileaflet, and appears structurally normal. No aortic stenosis or regurgitati on. 5. There is trace mitral regurgitation. 6. Trace tricuspid regurgitation present. 7. There is no pericardial effusion. [employer]: Carlene Vance RDCS
[2020-08-25 11:37] LABS: Glucose,Whole Blood 342 mg/dL (75-99)
[2020-08-25] MEDS ORDERED: INSULIN DETEMIR (LEVEMIR) 100 UNIT/ML SYR SQ ONE (12:00)
[2020-08-25 13:30] VITALS: BMI 30.1
[2020-08-25] MEDS ORDERED: REMDESIVIR 200 MG in SODIUM CHLORIDE 0.9% 250 ML IVPB ONE (13:30)
[2020-08-25 15:29] LABS: BUN/Creat Ratio 17.78 Ratio (12.00-20.00); Non-African American GFR(CKD) 82.8 (60.0-200.0); Potassium 4.4 mmol/L (3.5-5.5)
--- NOTE | 2020-08-25 16:02 | P.PN ---
Subjective Progress Note Date: 08/25/20 This is a 34-year-old female who was recently admitted with shortness of breath and cold symptoms and is being closely monitored. Patient was found to be Covid 19 positive. Infectious disease following. Patient is maintained on Lovenox, dexamethasone, zinc, vitamin C and D supplements and will continue this time. Blood sugars were found to be extremely elevated on admission and have improved although continue to be elevated. patient is maintained on sliding scale and will add long-acting 20 units daily . Patient is also currently receiving Remdesivir. Oxygen saturations has improved and patient is currently on room air at 93-94%. Patient instructed to continue with incentive spirometer at least 10 times every hour while awake and increase activity as tolerated. Patient does have an inhaler at the bedside. Patient states she is feeling much better today. Review of systems: Constitutional: No reports of fatigue, fever, or chills Cardiovascular: No reports of chest pain or palpitations Respiratory: Reports mild shortness of breath and occasional cough GI: No reports of nausea, vomiting, or diarrhea : No reports of dysuria or retention Neurovascular: No reports of weakness or numbness All medications have been reviewed Active Medications Hydrocodone Bitart/Acetaminophen (Hydrocodone/Apap 5-325mg 1 Each Tab) 1 each PO Q6HR PRN PRN Reason: Pain Albuterol Sulfate (Albuterol Hfa Inhaler) 2 puff INHALATION RT-QID [facility] Last Admin: 08/25/20 12:50 Dose: 2 puff Documented by: Alprazolam (Alprazolam 0.25 Mg Tab) 0.25 mg PO TID PRN PRN Reason: Anxiety Ascorbic Acid (Ascorbic Acid 500 Mg Tab) 500 mg PO DAILY [facility] Last Admin: 08/25/20 08:55 Dose: 500 mg Documented by: Benzonatate (Benzonatate 100 Mg Cap) 200 mg PO Q8H PRN PRN Reason: Cough Cholecalciferol (Cholecalciferol 1,000 Unit Tab) 1,000 unit PO DAILY [facility] Last Admin: 08/25/20 08:53 Dose: 1,000 unit Documented by: Dexamethasone (Dexamethasone 2 Mg Tab) 6 mg PO DAILY [facility] Last Admin: 08/25/20 08:55 Dose: 6 mg Documented by: Enoxaparin Sodium (Enoxaparin 40 Mg/0.4 Ml Syringe) 40 mg SQ Q24H [facility] Last Admin: 08/24/20 20:25 Dose: 40 mg Documented by: Famotidine (Famotidine 20 Mg Tab) 20 mg PO BID [facility] Last Admin: 08/25/20 08:53 Dose: 20 mg Documented by: Hydromorphone HCl (Hydromorphone 0.5 Mg/0.5 Ml Syringe) 0.5 mg IVP Q6HR PRN PRN Reason: Severe Pain Sodium Chloride (Saline 0.9%) 1,000 mls @ 130 mls/hr IV .Q7H42M [facility] Last Admin: 08/25/20 09:22 Dose: 130 mls/hr Documented by: Remdesivir 100 mg/ Sodium (Chloride) 250 mls @ 250 mls/hr IVPB DAILY@1200 [facility] Stop: 08/29/20 12:59 Insulin Aspart (Insulin Aspart (Novolog) 100 Unit/Ml Vial) 0 unit SQ [facility]; Protocol Last Admin: 08/25/20 12:18 Dose: 8 unit Documented by: Insulin Detemir (Insulin Detemir (Levemir) 100 Unit/Ml Syr) 20 unit SQ [facility] Levothyroxine Sodium (Levothyroxine 88 Mcg Tab) 176 mcg PO MoTh@0630 [facility] Last Admin: 08/25/20 06:18 Dose: 176 mcg Documented by: Levothyroxine Sodium (Levothyroxine 75 Mcg Tab) 150 mcg PO SuTuWeFrSa@0630 [facility] Losartan Potassium (Losartan 25 Mg Tab) 75 mg PO DAILY [facility] Last Admin: 08/25/20 08:55 Dose: 75 mg Documented by: Metformin HCl (Metformin 500 Mg Tab) 750 mg PO BID [facility] Last Admin: 08/25/20 08:56 Dose: 750 mg Documented by: Naloxone HCl (Naloxone 0.4 Mg/Ml 1 Ml Vial) 0.2 mg IV Q2M PRN PRN Reason: Opioid Reversal Patient's Own ( Dulaglutide [ Trulicity] 1.5 Mg/0. 5 Ml Pen.Injctr) 1.5 mg SQ INGRAM [facility] Temazepam (Temazepam 15 Mg Cap) 15 mg PO HS PRN PRN Reason: Insomnia Zinc Sulfate (Zinc Sulfate 220 Mg Cap) 220 mg PO DAILY [facility] Last Admin: 08/25/20 08:57 Dose: 220 mg Documented by: Objective - Vital Signs Vital signs: Vital Signs Temp 98.7 F 08/25/20 11:55 Pulse 51 L 08/25/20 11:55 Resp 18 08/25/20 11:55 BP 131/86 08/25/20 11:55 Pulse Ox 93 L 08/25/20 11:55 Intake & Output 08/24/20 08/25/20 08/25/20 18:59 06:59 18:59 Intake Total 320 1900 Balance 320 1900 Weight 89.811 kg Intake: Intake, IV Titration 1560 Amount Sodium Chloride 0.9% 1, 1560 000 ml @ 130 mls/hr IV . Q7H42M [facility] Rx#:[id number] Oral 320 340 Other: # Voids 3 - Exam Gen: This is a 34-year-old female, sitting up in bed, awake, alert and oriented 3, well-developed, well-nourished. Temp is 98.7F, pulse is 51, respirations are 18, blood pressure is 131/86, oxygen saturation is 93% on room air. HEENT: Head is atraumatic, normocephalic. Pupils equal, round. Sclerae is anicteric. NECK: Supple. No JVD. No lymphadenopathy. No thyromegaly. LUNGS: Diminished breath sounds bilaterally with some scattered rhonchi noted. No intercostal retractions. HEART: Regular rate and rhythm. No murmur. ABDOMEN: Soft. Bowel sounds are present. No masses. No tenderness. EXTREMITIES: No pedal edema. No calf tenderness. NEUROLOGICAL: Patient is awake, alert and oriented x3. Cranial nerves 2 through 12 are grossly intact. - Labs CBC & Chem 7: 08/25/20 09:22 08/25/20 09:22 Labs: Abnormal Lab Results - Last 24 Hours (Table) 08/24/20 08/24/20 08/24/20 Range/Units 14:34 14:34 14:34 Lymphocytes # 0.7 L (1.0-4.8) k/uL Glucose 578 H* (74-99) mg/dL POC Glucose (mg/dL) (75-99) mg/dL Plasma Lactic Acid Anthony 2.6 H* (0.7-2.0) mmol/L AST 47 H (14-36) U/L ALT 57 H (4-34) U/L C-Reactive Protein 43.4 H (<10.0) mg/L Ur Specific [place] (1.001-1.035) Urine Protein (Negative) Urine Glucose (UA) (Negative) Urine Ketones (Negative) 08/24/20 08/24/20 08/24/20 Range/Units 14:41 16:05 17:00 Lymphocytes # (1.0-4.8) k/uL Glucose (74-99) mg/dL POC Glucose (mg/dL) 492 H 401 H (75-99) mg/dL Plasma Lactic Acid Anthony (0.7-2.0) mmol/L AST (14-36) U/L ALT (4-34) U/L C-Reactive Protein (<10.0) mg/L Ur Specific [place] 1.036 H (1.001-1.035) Urine Protein Trace H (Negative) Urine Glucose (UA) 4+ H (Negative) Urine Ketones 1+ H (Negative) 08/24/20 08/24/20 08/25/20 Range/Units 18:32 20:57 02:04 Lymphocytes # (1.0-4.8) k/uL Glucose (74-99) mg/dL POC Glucose (mg/dL) 364 H 462 H 323 H (75-99) mg/dL Plasma Lactic Acid Anthony (0.7-2.0) mmol/L AST (14-36) U/L ALT (4-34) U/L C-Reactive Protein (<10.0) mg/L Ur Specific [place] (1.001-1.035) Urine Protein (Negative) Urine Glucose (UA) (Negative) Urine Ketones (Negative) 08/25/20 08/25/20 08/25/20 Range/Units 07:13 09:22 11:22 Lymphocytes # 0.8 L (1.0-4.8) k/uL Glucose (74-99) mg/dL POC Glucose (mg/dL) 332 H 342 H (75-99) mg/dL Plasma Lactic Acid Anthony (0.7-2.0) mmol/L AST (14-36) U/L ALT (4-34) U/L C-Reactive Protein (<10.0) mg/L Ur Specific [place] (1.001-1.035) Urine Protein (Negative) Urine Glucose (UA) (Negative) Urine Ketones (Negative) Assessment and Plan Assessment: Acute Covid 19 infection and possible bilateral pneumonia with possible hypoxic and acute hypoxic respiratory failure with sepsis, present on admission Diabetes mellitus type 2, uncontrolled with hyperosmolar state with no evidence of diabetic ketoacidosis Elevated plasma lactic acid secondary to sepsis, present on admission Increased AST, ALT with hepatitis of undetermined origin Increased CRP history of diabetes mellitus type 2 history of hypothyroidism history of cholecystectomy history of depression Full code Recommendations and discussion: Recommend to continue current medications, management, and symptomatic treatment. Patient is maintained on Lovenox, dexamethasone, zinc, vitamin C and D and will continue at this time. Infectious disease following. Patient has been started on Remdesivir. Continue with sliding scale and monitor blood sugars before meals at bedtime and monitor closely. Levemir 20 units being added. Oxygen has been removed and patient is maintaining oxygen saturations on room air of 93-94%. Instructed the patient to continue using incentive spirometer at least 10 times every hour while awake and continue to increase activity as tolerated. Due to multiple complex medical issues, prognosis is guarded. Further recommendations to follow.
[2020-08-25 17:00] LABS: Glucose,Whole Blood 425 mg/dL (75-99)
[2020-08-25] MEDS ORDERED: INSULIN REGULAR 100 UNIT in SODIUM CHLORIDE 0.9% 100 ML IV SCH (17:15)
[2020-08-25 17:40] LABS: Hemoglobin A1C 9.2 % (4.0-6.0)
[2020-08-25 19:55] LABS: Glucose,Whole Blood 376 mg/dL (75-99)
[2020-08-25] MEDS: ENOXAPARIN 40 MG/0.4 ML SYRINGE SQ SCH (20:07)
--- NOTE | 2020-08-25 21:05 | CONS ---
CONSULTATION DATE OF SERVICE: 08/25/2020 REASON FOR CONSULTATION: COVID-19 pneumonia. HISTORY OF PRESENT ILLNESS: The patient is a 34-year-old female presenting to the ER at [facility] yesterday for evaluation of increasing shortness of breath that had been getting worse for the last few days. The patient previously presented to this facility on with a 2- to 3-day history of symptoms. At that point the patient was diagnosed with COVID-19 and discharged home on symptomatic treatment. However, the patient presented to hospital with worsening shortness of breath, unable to take a deep breath. She did have a cough which has been moderate in intensity, mostly dry in nature, not bringing up any sputum. The patient did have some nausea but no vomiting. No abdominal pain. Did have some diarrhea. With these symptoms, the patient was evaluated by the ER physician. On arrival in the ER, the patient was afebrile. The patient was hypoxic with oxygen saturations of 89% on room air. Currently on 2 L nasal cannula. The patient did mention she did have slight improvement after she was started on the supplemental oxygen. The patient did have a normal white count with lymphopenia. D- dimer was normal. The patient did have a CRP of 43.4. normal. Urine was negative. The patient had a chest x-ray followed by CT of the chest with evidence of bilateral lower lobe infiltrate and atelectasis, right upper lobe could be nodular granuloma. The patient was started on dexamethasone, Lovenox. Infectious Disease was consulted for further management and need for remdesivir therapy. REVIEW OF SYSTEMS: Positive points have been mentioned in HPI. Rest of systems are negative. PAST MEDICAL HISTORY: Diabetes mellitus, hypothyroidism and depression. PAST SURGICAL HISTORY: Cholecystectomy. SOCIAL HISTORY: Denies smoking, drinking or drug use. FAMILY HISTORY: No pertinent findings were noted. ALLERGIES: SULFA. MEDICATIONS: The patient is currently on Aspen, Ventolin, Xanax, vitamin C, Tessalon Perles, dexamethasone, Lovenox, Pepcid, Dilaudid, NovoLog, Levemir, Synthroid, Cozaar, Glucophage, temazepam and zinc. PHYSICAL EXAMINATION: Blood pressure 131/86, pulse of 51, temperature 98.7. She is 93% on 2 L nasal cannula. General description is a middle-aged female up in the room in no distress. HEENT: Examination showed no pallor or scleral icterus. Oral mucous membrane dry. NECK: Trach central. No thyromegaly. LUNGS: Unlabored breathing. Coarse breath sounds bilaterally. No wheeze. HEART: S1, S2. Regular rate and rhythm. ABDOMEN: Soft. No tenderness. No guarding or rigidity. EXTREMITIES: No edema of the feet. SKIN EXAMINATION: No rash or mass palpable. NEUROLOGIC: The patient is awake, alert, oriented x3. Mood and affect normal. LABS: Hemoglobin is 12.3, white count 5.6. BUN of 16, creatinine 0.66. Lactic acid 2.6. Liver enzymes elevated. CRP was elevated. DIAGNOSTIC IMPRESSION AND PLAN: Patient admitted to hospital with increasing shortness of breath, cough with evidence of multifocal infiltrate secondary to acute COVID-19 pneumonia, failing outpatient therapy. This patient was hypoxic with symptoms of less than 10 days, well qualified for remdesivir therapy. PLAN: 1. The patient will be started on remdesivir mg x1 followed by 100 mg daily. 2. Continue with the dexamethasone, Lovenox, zinc sulfate. 3. respiratory support. 4. Will follow clinical condition and further adjust medication if needed. Thank you for this consultation. Will follow this patient along with you. MMODL / IJN: [id number] /
[2020-08-25 22:07] LABS: Glucose,Whole Blood 256 mg/dL (75-99)
[2020-08-26 00:09] LABS: Glucose,Whole Blood 189 mg/dL (75-99)
[2020-08-26 01:59] LABS: Glucose,Whole Blood 172 mg/dL (75-99)
[2020-08-26 04:34] LABS: Glucose,Whole Blood 142 mg/dL (75-99)
[2020-08-26] MEDS: SODIUM CHLORIDE 0.9% 1,000 ML IV SCH ×3 (05:18→21:20)
[2020-08-26] MEDS: LEVOTHYROXINE 75 MCG TAB PO SCH (05:19)
[2020-08-26 07:24] LABS: Glucose,Whole Blood 159 mg/dL (75-99)
[2020-08-26] MEDS ORDERED: INSULIN ASPART (NovoLOG) 100 UNIT/ML VIAL SQ SCH (07:30)
[2020-08-26 07:48] LABS: Basophils % (A) 0 %; Eosinophils % (A) 0 %; HCT 38.8 % (34.0-46.0); HGB 12.7 gm/dL (11.4-16.0); Lymphocytes # (A) 1.2 k/uL (1.0-4.8); Lymphocytes % (A) 20 %; MCH 29.7 pg (25.0-35.0); MCHC 32.7 g/dL (31.0-37.0); MCV 90.7 fL (80.0-100.0); Mean Platelet Volume 8.4; Monocytes # (A) 0.2 k/uL (0-1.0); Monocytes % (A) 3 %; Neutrophils # (A) 4.6 k/uL (1.3-7.7); Neutrophils % (A) 75 %; Platelet Count 211 k/uL (150-450); RBC 4.28 m/uL (3.80-5.40); RDW 12.7 % (11.5-15.5); WBC 6.2 k/uL (3.8-10.6)
[2020-08-26] MEDS: metFORMIN 500 MG TAB PO SCH ×2 (07:53→21:11)
[2020-08-26] MEDS: CHOLECALCIFEROL 1,000 UNIT TAB PO SCH (07:53)
[2020-08-26] MEDS: ZINC SULFATE 220 MG CAP PO SCH (07:53)
[2020-08-26] MEDS: LOSARTAN 25 MG TAB PO SCH (07:53)
[2020-08-26] MEDS: ASCORBIC ACID 500 MG TAB PO SCH (07:54)
[2020-08-26] MEDS: FAMOTIDINE 20 MG TAB PO SCH ×2 (07:54→21:11)
[2020-08-26] MEDS: dexAMETHasone 2 MG TAB PO SCH (07:54)
[2020-08-26] MEDS: ALBUTEROL HFA INHALER INHALATION SCH ×4 (09:28→20:25)
[2020-08-26] MEDS ORDERED: INSULIN DETEMIR (LEVEMIR) 100 UNIT/ML SYR SQ SCH ×2 (12:00→21:00)
[2020-08-26 12:01] LABS: African American GFR (CKD) 110.7 (60.0-200.0); Anion Gap 11.4 mmol/L (4.00-12.00); BUN/Creat Ratio 23.75 Ratio (12.00-20.00); Calcium 8.9 mg/dL (8.7-10.3); Carbon Dioxide 18.6 mmol/L (21.6-31.8); Non-African American GFR(CKD) 95.5 (60.0-200.0); Potassium 3.8 mmol/L (3.5-5.5)
[2020-08-26 12:09] LABS: Glucose,Whole Blood 243 mg/dL (75-99)
[2020-08-26] MEDS: REMDESIVIR 100 MG in SODIUM CHLORIDE 0.9% 250 ML IVPB SCH (12:29)
[2020-08-26] MEDS: INSULIN ASPART (NovoLOG) 100 UNIT/ML VIAL SQ SCH ×5 (12:29→21:13)
--- NOTE | 2020-08-26 14:11 | P.PN ---
Subjective Progress Note Date: 08/26/20 This is a 34-year-old female who was recently admitted with shortness of breath and cold symptoms and is being closely monitored. Patient was found to be Covid 19 positive. Infectious disease following. Patient is maintained on Lovenox, dexamethasone, zinc, vitamin C and D supplements and will continue this time. Blood sugars were found to be extremely elevated on admission and have improved although continue to be elevated. patient is maintained on sliding scale and will add long-acting 20 units daily . Patient is also currently receiving Remdesivir. Oxygen saturations has improved and patient is currently on room air at 93-94%. Patient instructed to continue with incentive spirometer at least 10 times every hour while awake and increase activity as tolerated. Patient does have an inhaler at the bedside. Patient states she is feeling much better today. 08/26/2020 Patient is seen and evaluated in follow-up with acute Covid 19 and is being closely monitored. Infectious disease is following. She continues to have elevated blood sugars and was briefly placed back on insulin drip last night which is now on hold and will be discontinued. Patient will be given 30 units of Levemir now and will continue daily along with sliding scale and 2 units of aspart 3 times a day with meals. Patient remains on steroids and will continue this time. Patient is currently receiving Remdesivir and will continue to monitor closely. Patient presently denies any shortness of breath and oxygen saturation is currently at 96% room air. Patient instructed to continue using the incentive spirometer at least 10 times every hour while awake. Patient is tolerating diet with no reports of nausea or vomiting noted. Will repeat a.m. labs. Review of systems: Constitutional: No reports of fatigue, fever, or chills Cardiovascular: No reports of chest pain or palpitations Respiratory: No reports of shortness of breath, reports occasional cough GI: No reports of nausea, vomiting, or diarrhea : No reports of dysuria or retention Neurovascular: No reports of weakness or numbness All medications have been reviewed Active Medications Hydrocodone Bitart/Acetaminophen (Hydrocodone/Apap 5-325mg 1 Each Tab) 1 each PO Q6HR PRN PRN Reason: Pain Albuterol Sulfate (Albuterol Hfa Inhaler) 2 puff INHALATION RT-QID [facility] Last Admin: 08/26/20 12:25 Dose: 2 puff Documented by: Alprazolam (Alprazolam 0.25 Mg Tab) 0.25 mg PO TID PRN PRN Reason: Anxiety Ascorbic Acid (Ascorbic Acid 500 Mg Tab) 500 mg PO DAILY [facility] Last Admin: 08/26/20 07:54 Dose: 500 mg Documented by: Benzonatate (Benzonatate 100 Mg Cap) 200 mg PO Q8H PRN PRN Reason: Cough Cholecalciferol (Cholecalciferol 1,000 Unit Tab) 1,000 unit PO DAILY [facility] Last Admin: 08/26/20 07:53 Dose: 1,000 unit Documented by: Dexamethasone (Dexamethasone 2 Mg Tab) 6 mg PO DAILY [facility] Last Admin: 08/26/20 07:54 Dose: 6 mg Documented by: Enoxaparin Sodium (Enoxaparin 40 Mg/0.4 Ml Syringe) 40 mg SQ Q24H [facility] Last Admin: 08/25/20 20:07 Dose: 40 mg Documented by: Famotidine (Famotidine 20 Mg Tab) 20 mg PO BID [facility] Last Admin: 08/26/20 07:54 Dose: 20 mg Documented by: Hydromorphone HCl (Hydromorphone 0.5 Mg/0.5 Ml Syringe) 0.5 mg IVP Q6HR PRN PRN Reason: Severe Pain Sodium Chloride (Saline 0.9%) 1,000 mls @ 130 mls/hr IV .Q7H42M [facility] Last Admin: 08/26/20 05:18 Dose: 130 mls/hr Documented by: Remdesivir 100 mg/ Sodium (Chloride) 250 mls @ 250 mls/hr IVPB DAILY@1200 [facility] Stop: 08/29/20 12:59 Last Admin: 08/26/20 12:29 Dose: 250 mls/hr Documented by: Insulin Aspart (Insulin Aspart (Novolog) 100 Unit/Ml Vial) 2 unit SQ AC-TID [facility] Last Admin: 08/26/20 12:29 Dose: 2 unit Documented by: Insulin Aspart (Insulin Aspart (Novolog) 100 Unit/Ml Vial) 0 unit SQ [facility]CH[facility]; Protocol Last Admin: 08/26/20 12:29 Dose: 8 unit Documented by: Insulin Detemir (Insulin Detemir (Levemir) 100 Unit/Ml Syr) 30 unit SQ DAILY@0700 [facility] Last Admin: 08/26/20 12:28 Dose: 30 unit Documented by: Levothyroxine Sodium (Levothyroxine 88 Mcg Tab) 176 mcg PO MoTh@0630 [facility] Last Admin: 08/25/20 06:18 Dose: 176 mcg Documented by: Levothyroxine Sodium (Levothyroxine 75 Mcg Tab) 150 mcg PO SuTuWeFrSa@0630 [facility] Last Admin: 08/26/20 05:19 Dose: 150 mcg Documented by: Losartan Potassium (Losartan 25 Mg Tab) 75 mg PO DAILY [facility] Last Admin: 08/26/20 07:53 Dose: 75 mg Documented by: Metformin HCl (Metformin 500 Mg Tab) 750 mg PO BID [facility] Last Admin: 08/26/20 07:53 Dose: 750 mg Documented by: Naloxone HCl (Naloxone 0.4 Mg/Ml 1 Ml Vial) 0.2 mg IV Q2M PRN PRN Reason: Opioid Reversal Patient's Own ( Dulaglutide [ Trulicity] 1.5 Mg/0. 5 Ml Pen.Injctr) 1.5 mg SQ INGRAM [facility] Temazepam (Temazepam 15 Mg Cap) 15 mg PO HS PRN PRN Reason: Insomnia Zinc Sulfate (Zinc Sulfate 220 Mg Cap) 220 mg PO DAILY [facility] Last Admin: 08/26/20 07:53 Dose: 220 mg Documented by: Objective - Vital Signs Vital signs: Vital Signs Temp 97.7 F 08/26/20 04:39 Pulse 40 L 08/26/20 04:39 Resp 17 08/26/20 04:39 BP 114/59 08/26/20 04:39 Pulse Ox 94 L 08/26/20 04:39 Intake & Output 08/25/20 08/26/20 08/26/20 18:59 06:59 18:59 Intake Total 73.377 Balance 73.377 Weight 89.811 kg Intake: Intake, IV Titration 73.377 Amount Insulin Regular 100 unit 73.377 In Sodium Chloride 0.9% 100 ml @ Titrate IV .Q0M [facility] Rx#:[id number] - Exam Gen: This is a 34-year-old female, sitting up in bed, awake, alert and oriented 3, well-developed, well-nourished. Temp is 97.8F, pulse is 44, respirations are 18, blood pressure is 136/86, oxygen saturation is 96% on room air. HEENT: Head is atraumatic, normocephalic. Pupils equal, round. Sclerae is anicteric. NECK: Supple. No JVD. No lymphadenopathy. No thyromegaly. LUNGS: Diminished breath sounds bilaterally with some scattered rhonchi noted. No intercostal retractions. HEART: S1, S2 are muffled with no murmur noted ABDOMEN: Soft. Bowel sounds are present. No masses. No tenderness. EXTREMITIES: No pedal edema. No calf tenderness. NEUROLOGICAL: Patient is awake, alert and oriented x3. Cranial nerves 2 through 12 are grossly intact. - Labs CBC & Chem 7: 08/26/20 07:29 08/26/20 07:29 Labs: Abnormal Lab Results - Last 24 Hours (Table) 08/25/20 08/25/20 08/25/20 Range/Units 09:22 09:22 09:22 Lymphocytes # 0.8 L (1.0-4.8) k/uL Glucose 436 H (70-110) mg/dL POC Glucose (mg/dL) (75-99) mg/dL Hemoglobin A1c 9.2 H (4.0-6.0) % 08/25/20 08/25/20 08/25/20 Range/Units 11:22 16:58 19:54 Lymphocytes # (1.0-4.8) k/uL Glucose (70-110) mg/dL POC Glucose (mg/dL) 342 H 425 H 376 H (75-99) mg/dL Hemoglobin A1c (4.0-6.0) % 08/25/20 08/26/20 08/26/20 Range/Units 21:49 00:07 01:57 Lymphocytes # (1.0-4.8) k/uL Glucose (70-110) mg/dL POC Glucose (mg/dL) 256 H 189 H 172 H (75-99) mg/dL Hemoglobin A1c (4.0-6.0) % 08/26/20 08/26/20 Range/Units 04:33 07:16 Lymphocytes # (1.0-4.8) k/uL Glucose (70-110) mg/dL POC Glucose (mg/dL) 142 H 159 H (75-99) mg/dL Hemoglobin A1c (4.0-6.0) % Assessment and Plan Assessment: Acute Covid 19 infection and possible bilateral pneumonia with possible hypoxic and acute hypoxic respiratory failure with sepsis, present on admission Diabetes mellitus type 2, uncontrolled with hyperosmolar state with no evidence of diabetic ketoacidosis Elevated plasma lactic acid secondary to sepsis, present on admission Increased AST, ALT with hepatitis of undetermined origin Increased CRP history of diabetes mellitus type 2 history of hypothyroidism history of cholecystectomy history of depression Full code Recommendations and discussion: Recommend to continue current medications, management, and symptomatic treatment. Patient is maintained on Lovenox, dexamethasone, zinc, vitamin C and D and will continue at this time. Infectious disease following. Patient has been started on Remdesivir. Continue with sliding scale and monitor blood sugars before meals at bedtime and monitor closely. Levemir 30 units along with 2 units of aspart 3 times a day with meals will be added. Insulin drip that was initiated briefly last night has been discontinued. Maintaining oxygen saturations on room air of 96%. Instructed the patient to continue using incentive spirometer at least 10 times every hour while awake and continue to increase activity as tolerated. Due to multiple complex medical issues, prognosis is guarded. Further recommendations to follow.
--- NOTE | 2020-08-26 16:22 | P.PN ---
Subjective Progress Note Date: 08/26/20 HISTORY OF PRESENT ILLNESS This is a 34-year-old female initially presented to Hospital due to i ncreasing shortness of breath worsening over the past few days diagnosed with Covid 19 and was initially discharged home and return to the hospital with worsening shortness of breath. She also had some nausea without vomiting, no abdominal pain. Patient was positive for diarrhea. Her pulse ox in the emergency center was 89% on room air placed on 2 L nasal cannula patient was also started on Remdesivir date 10/28. At the time of this evaluation, patient denies having any chest pain. She states her breathing status is okay. She is able to take a deep breath. She has occasional cough. She denies any nausea. No abdominal pain. She states her appetite has been adequate and eating well. Pulse ox is 96% on room air. Afebrile, heart rate 44, blood pressure 136/86. PHYSICAL EXAMINATION Gen: This is a 34-year-old female. She is resting in chair and appears to be comfortable. No respiratory distress is noted. HEENT: Head is atraumatic, normocephalic. Pupils equal, round. Sclerae is anicteric. NECK: Supple. No JVD. No lymphadenopathy. No thyromegaly. LUNGS: Clear to auscultation. No wheezes or rhonchi. No intercostal retractions. No accessory muscle usage. HEART: Regular rate and rhythm. No murmur. ABDOMEN: Soft. Bowel sounds are present. No masses. No tenderness. EXTREMITIES: No pedal edema. No calf tenderness. NEUROLOGICAL: Patient is awake, alert and oriented x3. ASSESSMENT Covid 19 pneumonia Hypoxia, resolved PLAN Patient is on day 10/28 of Remdesivir Continue dexamethasone 6 mg daily, Lovenox 40 mg daily, supplements Patient is cleared for discharge by infectious disease. Patient does not need complete course of Remdesivir. Recommend continuing prednisone taper and supplements as an outpatient. The above dictated assessment and findings were discussed with Dr. Castro. The impression and plan of care have been directed as dictated. Ruby Ferrara nurse practitioner acting as scribe for Dr. Castro. Objective - Vital Signs Vital signs: Vital Signs Temp 97.8 F 08/26/20 11:23 Pulse 44 L 08/26/20 11:23 Resp 18 12/04/20 11:23 BP 136/86 08/26/20 11:23 Pulse Ox 96 08/26/20 11:23 Intake & Output 08/25/20 08/26/20 08/26/20 18:59 06:59 18:59 Intake Total 73.377 Balance 73.377 Weight 89.811 kg Intake: Intake, IV Titration 73.377 Amount Insulin Regular 100 unit 73.377 In Sodium Chloride 0.9% 100 ml @ Titrate IV .Q0M [facility] Rx#:[id number] - Labs CBC & Chem 7: 08/26/20 07:29 08/26/20 07:29 Labs: Abnormal Lab Results - Last 24 Hours (Table) 08/25/20 08/25/20 08/25/20 Range/Units 09:22 09:22 16:58 Chloride (96-109) mmol/L Carbon Dioxide (21.6-31.8) mmol/L BUN/Creatinine Ratio (12.00-20.00) Ratio Glucose 436 H (70-110) mg/dL POC Glucose (mg/dL) 425 H (75-99) mg/dL Hemoglobin A1c 9.2 H (4.0-6.0) % 08/25/20 08/25/20 08/26/20 Range/Units 19:54 21:49 00:07 Chloride (96-109) mmol/L Carbon Dioxide (21.6-31.8) mmol/L BUN/Creatinine Ratio (12.00-20.00) Ratio Glucose (70-110) mg/dL POC Glucose (mg/dL) 376 H 256 H 189 H (75-99) mg/dL Hemoglobin A1c (4.0-6.0) % 08/26/20 08/26/20 08/26/20 Range/Units 01:57 04:33 07:16 Chloride (96-109) mmol/L Carbon Dioxide (21.6-31.8) mmol/L BUN/Creatinine Ratio (12.00-20.00) Ratio Glucose (70-110) mg/dL POC Glucose (mg/dL) 172 H 142 H 159 H (75-99) mg/dL Hemoglobin A1c (4.0-6.0) % 08/26/20 08/26/20 Range/Units 07:29 11:55 Chloride 113 H (96-109) mmol/L Carbon Dioxide 18.6 L (21.6-31.8) mmol/L BUN/Creatinine Ratio 23.75 H (12.00-20.00) Ratio Glucose 176 H (70-110) mg/dL POC Glucose (mg/dL) 243 H (75-99) mg/dL Hemoglobin A1c (4.0-6.0) %
[2020-08-26 17:03] LABS: Glucose,Whole Blood 429 mg/dL (75-99)
[2020-08-26] MEDS ORDERED: INSULIN ASPART (NovoLOG) 100 UNIT/ML VIAL SQ ONE (17:34)
[2020-08-26] MEDS ORDERED: Magnesium Replacement Protocol 1 EACH MISC MISCELLANE PRN (18:50)
[2020-08-26 20:49] LABS: Glucose,Whole Blood 395 mg/dL (75-99)
[2020-08-26] MEDS: INSULIN DETEMIR (LEVEMIR) 100 UNIT/ML SYR SQ SCH (21:11)
[2020-08-26] MEDS: ENOXAPARIN 40 MG/0.4 ML SYRINGE SQ SCH (21:11)
[2020-08-26 22:41] LABS: Magnesium 1.8 mg/dL (1.5-2.4)
[2020-08-27 02:00] LABS: Glucose,Whole Blood 250 mg/dL (75-99)
[2020-08-27] MEDS: LEVOTHYROXINE 75 MCG TAB PO SCH (05:40)
[2020-08-27] MEDS: SODIUM CHLORIDE 0.9% 1,000 ML IV SCH ×3 (05:40→18:15)
[2020-08-27 06:21] LABS: Basophils % (A) 1 %; Eosinophils % (A) 0 %; HCT 37.3 % (34.0-46.0); HGB 12.5 gm/dL (11.4-16.0); Lymphocytes # (A) 1.8 k/uL (1.0-4.8); Lymphocytes % (A) 23 %; MCHC 33.6 g/dL (31.0-37.0); MCV 92.3 fL (80.0-100.0); Mean Platelet Volume 8.6; Monocytes # (A) 0.3 k/uL (0-1.0); Monocytes % (A) 4 %; Neutrophils # (A) 5.5 k/uL (1.3-7.7); Neutrophils % (A) 71 %; Platelet Count 243 k/uL (150-450); RBC 4.04 m/uL (3.80-5.40); RDW 12.5 % (11.5-15.5); WBC 7.8 k/uL (3.8-10.6)
[2020-08-27 07:42] LABS: Glucose,Whole Blood 125 mg/dL (75-99)
[2020-08-27] MEDS: ENOXAPARIN 40 MG/0.4 ML SYRINGE SQ SCH ×2 (08:54→20:21)
[2020-08-27] MEDS: INSULIN ASPART (NovoLOG) 100 UNIT/ML VIAL SQ SCH ×8 (08:54→22:04)
[2020-08-27] MEDS: INSULIN DETEMIR (LEVEMIR) 100 UNIT/ML SYR SQ SCH ×2 (08:54→20:22)
[2020-08-27] MEDS: CHOLECALCIFEROL 1,000 UNIT TAB PO SCH (08:55)
[2020-08-27] MEDS: ASCORBIC ACID 500 MG TAB PO SCH (08:55)
[2020-08-27] MEDS: metFORMIN 500 MG TAB PO SCH ×2 (08:55→20:22)
[2020-08-27] MEDS: LOSARTAN 25 MG TAB PO SCH (08:55)
[2020-08-27] MEDS: FAMOTIDINE 20 MG TAB PO SCH ×2 (08:55→20:22)
[2020-08-27] MEDS: ZINC SULFATE 220 MG CAP PO SCH (08:55)
[2020-08-27] MEDS: dexAMETHasone 2 MG TAB PO SCH (08:55)
[2020-08-27 09:09] LABS: Anion Gap 6.9 mmol/L (4.00-12.00); BUN/Creat Ratio 22.22 Ratio (12.00-20.00); Calcium 8.9 mg/dL (8.7-10.3); Carbon Dioxide 24.1 mmol/L (21.6-31.8); Magnesium 1.8 mg/dL (1.5-2.4); Non-African American GFR(CKD) 82.8 (60.0-200.0); Potassium 4.2 mmol/L (3.5-5.5)
[2020-08-27] MEDS: ALBUTEROL HFA INHALER INHALATION SCH ×4 (09:22→19:59)
[2020-08-27 11:10] LABS: Glucose,Whole Blood 250 mg/dL (75-99)
[2020-08-27] MEDS: REMDESIVIR 100 MG in SODIUM CHLORIDE 0.9% 250 ML IVPB SCH (12:50)
[2020-08-27 17:22] LABS: Glucose,Whole Blood 328 mg/dL (75-99)
[2020-08-27 20:08] LABS: Glucose,Whole Blood 384 mg/dL (75-99)
[2020-08-27 21:58] LABS: Glucose,Whole Blood 295 mg/dL (75-99)
--- NOTE | 2020-08-27 22:41 | PN ---
PROGRESS NOTE DATE OF SERVICE: 08/27/2020. REASON FOR FOLLOW UP: Acute COVID-19 pneumonia. INTERVAL HISTORY: Patient is currently afebrile. The patient is breathing comfortably. The patient denies having any chest pain. Minimal cough. No nausea, no vomiting. No abdominal pain or diarrhea. PHYSICAL EXAMINATION: Blood pressure is 150/90 with a pulse of 72, temperature 97.9. She is 97% on room air. General description is a middle-aged female lying in bed in no distress. Respiratory system: Unlabored breathing, decreased breath sounds in the base. No wheeze. Heart S1, S2. Regular rate and rhythm. Abdomen soft, no tenderness. LABORATORY DATA: Hemoglobin 12.4, white count 7.8. BUN of 20, creatinine 0.9. DIAGNOSTIC IMPRESSION AND PLAN: Patient with acute COVID-19 pneumonia in this patient who did show overall clinical response. Clinically improved with dexamethasone, Lovenox and Remdesivir. We will give a short course of on discharge along with zinc sulfate and continue supportive care. MMODL / IJN: [id number] /
[2020-08-27] MEDS ORDERED: DOPamine DRIP 800 MG in DEXTROSE/WATER 1 250ML.BAG IV SCH (23:15)
[2020-08-28 01:55] LABS: Glucose,Whole Blood 136 mg/dL (75-99)
[2020-08-28] MEDS: INSULIN ASPART (NovoLOG) 100 UNIT/ML VIAL SQ SCH ×8 (02:33→21:23)
[2020-08-28 06:13] LABS: Glucose,Whole Blood 66 mg/dL (75-99)
[2020-08-28] MEDS: SODIUM CHLORIDE 0.9% 1,000 ML IV SCH ×3 (06:22→18:57)
[2020-08-28 06:24] LABS: Glucose,Whole Blood 65 mg/dL (75-99)
[2020-08-28] MEDS: LEVOTHYROXINE 75 MCG TAB PO SCH (06:24)
[2020-08-28 06:45] LABS: Glucose,Whole Blood 116 mg/dL (75-99)
[2020-08-28] MEDS: ALBUTEROL HFA INHALER INHALATION SCH ×4 (07:48→19:55)
[2020-08-28] MEDS ORDERED: PATIENT'S OWN (Dulaglutide [Trulicity] 1.5 MG/0.5 ML Pen.Injctr) SQ SCH (09:00)
[2020-08-28] MEDS: LOSARTAN 25 MG TAB PO SCH (09:37)
[2020-08-28] MEDS: dexAMETHasone 2 MG TAB PO SCH (09:37)
[2020-08-28] MEDS: FAMOTIDINE 20 MG TAB PO SCH ×2 (09:38→21:22)
[2020-08-28] MEDS: metFORMIN 500 MG TAB PO SCH ×2 (09:38→21:22)
[2020-08-28] MEDS: ENOXAPARIN 40 MG/0.4 ML SYRINGE SQ SCH ×2 (09:38→21:22)
[2020-08-28] MEDS: CHOLECALCIFEROL 1,000 UNIT TAB PO SCH (09:38)
[2020-08-28] MEDS: ZINC SULFATE 220 MG CAP PO SCH (09:38)
[2020-08-28] MEDS: ASCORBIC ACID 500 MG TAB PO SCH (09:38)
[2020-08-28] MEDS: INSULIN DETEMIR (LEVEMIR) 100 UNIT/ML SYR SQ SCH ×2 (10:30→21:22)
--- NOTE | 2020-08-28 11:01 | P.CRDCN ---
History of Present Illness Consult date: 08/28/20 Requesting physician: Behzad Grijalva Reason for Consult (text): bradycardia Chief complaint: worsening shortness of breath, COVID-19 History of present illness: Pleasant 34-year-old female patient with a history of diabetes mellitus type 2 and hypothyroidism. Initially presented to the emergency department on 08/20/2020 at that time was diagnosed with COVID-19. She presented again on August 24 with worsening shortness of breath and cough as well as loose stools. She had been on steroids as an outpatient for treatment of the Covid 19. She was found to be hyperglycemic on admission secondary to steroids. This x-ray on 08/20/2020 showed no acute cardiopulmonary process. A repeat chest x-ray done this admission showed 1.5 cm right upper lobe mass found basilar infiltrate versus atelectasis correlate for early pneumonia. CT scan of the chest showed bilateral lower lobe linear infiltrate and atelectasis, right upper lobe mass sharply marginated and could be large granuloma. EKG on admission showed normal sinus rhythm with a heart rate of 86 bpm. He was initiated on dexamethasone, vitamin C, zinc, Remdesvimir, and insulin. We were asked to see the patient in consultation secondary to bradycardia. EKG shows sinus bradycardia with a heart rate in the 30s. He did have an echocardiogram done a few days ago which showed normal LV systolic function with an ejection fraction between 55-60% with no segmental wall motion abnormalities and no significant valvular abnormalities. Labs show a normal TSH and negative troponins. Overall she is feeling well. She was initiated on dopamine drip through the night secondary to bradycardia. She denies having any symptoms of dizziness or lightheadedness. She denies any significant weakness or fatigue. Her breathing has improved. She's had no chest discomfort or palpitations. She did feel ill with some nausea when the dopamine was increased to a higher dose. She is currently on 2.5 mcg/kg/min. Past Medical History Past Medical History: Diabetes Mellitus, Thyroid Disorder Additional Past Medical History / Comment(s): type 2 DM History of Any Multi-Drug Resistant Organisms: None Reported Past Surgical History: Cholecystectomy Past Anesthesia/Blood Transfusion Reactions: No Reported Reaction Past Psychological History: Depression Smoking Status: Never smoker Past Alcohol Use History: None Reported Past Drug Use History: None Reported - Past Family History Father Family Medical History: Diabetes Mellitus Sister(s) Family Medical History: Thyroid Disorder Medications and Allergies Home Medications Medication Instructions Recorded Confirmed Type Levothyroxine Sodium [Synthroid] 150 mcg PO [id number] 04/15/18 08/24/20 History metFORMIN HCL [metFORMIN HCL ER] 750 mg PO BID 04/15/18 08/24/20 History Benzonatate [Tessalon Perles] 200 mg PO Q8H PRN #15 capsule 08/20/20 08/24/20 Rx Candesartan Cilexetil 12 mg PO DAILY 08/20/20 08/24/20 History Dulaglutide [Trulicity] 1.5 mg SQ INGRAM 08/20/20 08/24/20 History Levothyroxine Sodium [Synthroid] 175 mcg PO MOTH 08/20/20 08/24/20 History Albuterol Inhaler [Ventolin Hfa 2 puff INHALATION RT-QID 08/24/20 08/24/20 History Inhaler] Azithromycin [Zithromax Z-pack (6 See Taper PO DIRECTED 08/24/20 08/24/20 History tabs)] methylPREDNISolone [Medrol Dose See Taper PO DIRECTED 08/24/20 08/24/20 History Pack] Allergies Allergy/AdvReac Type Severity Reaction Status Date / Time Sulfa (Sulfonamide Allergy Rash/Hives Verified 08/24/20 15:33 Antibiotics) Physical Exam Vitals: Vital Signs Temp Pulse Resp BP Pulse Ox 08/28/20 04:15 38 L 130/65 08/28/20 03:30 64 181/85 08/28/20 02:15 97.7 F 38 L 20 168/81 96 08/27/20 22:05 97.5 F L 36 L 22 130/67 94 L 08/27/20 19:15 32 L 16 08/27/20 17:41 97.9 F 72 16 160/90 97 08/27/20 11:05 98.2 F 36 L 12 149/85 95 Intake and Output 08/27/20 08/28/20 08/28/20 22:59 06:59 14:59 Intake Total 250 457.999 Balance 250 457.999 Intake: Intake, IV Titration 250 7.999 Amount DOPamine DRIP 800 mg In 7.999 Dextrose/Water 1 250ml. bag @ 2.5 MCG/KG/MIN 4.21 mls/hr IV .Q24H [facility] Rx#: [id number] Remdesivir 100 mg In 250 Sodium Chloride 0.9% 250 ml @ 250 mls/hr IVPB DAILY@1200 [facility] Rx#: [id number] Oral 450 Other: Voiding Method Toilet # Voids 4 2 Weight 53 kg A thorough physical exam was not performed secondary to COVID-19 infection. Results 08/27/20 05:55 08/27/20 05:55 Cardiac Enzymes 08/27/20 Range/Units 23:19 Troponin I <0.012 (0.000-0.034) ng/mL Comprehensive Metabolic Panel 08/27/20 Range/Units 05:55 Sodium 143 (135-145) mmol/L Potassium 4.2 (3.5-5.5) mmol/L Chloride 112 H (96-109) mmol/L Carbon Dioxide 24.1 (21.6-31.8) mmol/L BUN 20.0 (9.0-27.0) mg/dL Creatinine 0.9 (0.6-1.5) mg/dL Glucose 162 H (70-110) mg/dL Calcium 8.9 (8.7-10.3) mg/dL Current Medications Generic Name Dose Route Start Last Admin Trade Name Freq PRN Reason Stop Dose Admin Hydrocodone Bitart/Acetaminophen 1 each 08/24/20 19:18 Hydrocodone/Apap 5-325mg 1 Each Tab PO Q6HR PRN Pain Albuterol Sulfate 2 puff 08/24/20 20:00 08/28/20 07:48 Albuterol Hfa Inhaler INHALATION 2 puff RT-QID [facility] Administration Alprazolam 0.25 mg 08/24/20 19:18 Alprazolam 0.25 Mg Tab PO TID PRN Anxiety Ascorbic Acid 500 mg 08/25/20 09:00 08/27/20 08:55 Ascorbic Acid 500 Mg Tab PO 500 mg DAILY [facility] Administration Benzonatate 200 mg 08/24/20 18:35 Benzonatate 100 Mg Cap PO Q8H PRN Cough Cholecalciferol 1,000 unit 08/25/20 09:00 08/27/20 08:55 Cholecalciferol 1,000 Unit Tab PO 1,000 unit DAILY [facility] Administration Dexamethasone 6 mg 08/24/20 18:45 08/27/20 08:55 Dexamethasone 2 Mg Tab PO 6 mg DAILY [facility] Administration Enoxaparin Sodium 40 mg 08/26/20 21:00 08/27/20 20:21 Enoxaparin 40 Mg/0.4 Ml Syringe SQ 40 mg BID [facility] Administration Famotidine 20 mg 08/24/20 21:00 08/27/20 20:22 Famotidine 20 Mg Tab PO 20 mg BID [facility] Administration Hydromorphone HCl 0.5 mg 08/24/20 19:18 Hydromorphone 0.5 Mg/0.5 Ml Syringe IVP Q6HR PRN Severe Pain Sodium Chloride 1,000 mls @ 130 mls/hr 08/24/20 14:30 08/28/20 06:22 Saline 0.9% IV 130 mls/hr .Q7H42M [facility] Administration Remdesivir 100 mg/ Sodium 250 mls @ 250 mls/hr 08/26/20 12:00 08/27/20 12:50 Chloride IVPB 08/29/20 12:59 250 mls/hr DAILY@1200 [facility] Administration Dopamine HCl/Dextrose 800 mg/ 250 mls @ 4.21 mls/hr 08/27/20 23:15 08/28/20 03:44 IV Solution IV 2.5 mcg/kg/min .Q24H [facility] 4.21 mls/hr Titration Protocol 2.5 MCG/KG/MIN Insulin Aspart 2 unit 08/26/20 12:30 08/28/20 06:18 Insulin Aspart (Novolog) 100 Unit/Ml Vial SQ Not Given AC-TID [facility] Insulin Aspart 0 unit 08/28/20 02:00 08/28/20 06:19 Insulin Aspart (Novolog) 100 Unit/Ml Vial SQ Not Given [id number] [facility] Protocol Insulin Detemir 30 unit 08/26/20 21:00 08/27/20 20:22 Insulin Detemir (Levemir) 100 Unit/Ml Syr SQ 30 unit BID [facility] Administration Levothyroxine Sodium 176 mcg 08/25/20 06:30 08/25/20 06:18 Levothyroxine 88 Mcg Tab PO 176 mcg MoTh@0630 [facility] Administration Levothyroxine Sodium 150 mcg 08/26/20 06:30 08/28/20 06:24 Levothyroxine 75 Mcg Tab PO 150 mcg SuTuWeFrSa@0630 [facility] Administration Losartan Potassium 75 mg 08/25/20 09:00 08/27/20 08:55 Losartan 25 Mg Tab PO 75 mg DAILY [facility] Administration Metformin HCl 750 mg 08/24/20 21:00 08/27/20 20:22 Metformin 500 Mg Tab PO 750 mg BID [facility] Administration Miscellaneous Information 1 each 08/26/20 18:50 Magnesium Replacement Protocol 1 Each Misc MISCELLANE DAILY PRN Per Protocol Protocol Naloxone HCl 0.2 mg 08/24/20 16:39 Naloxone 0.4 Mg/Ml 1 Ml Vial IV Q2M PRN Opioid Reversal Patient's Own ( 1.5 mg 08/28/20 09:00 Dulaglutide [ SQ Trulicity] 1.5 Mg/0. INGRAM [facility] 5 Ml Pen.Injctr) Temazepam 15 mg 08/24/20 19:18 Temazepam 15 Mg Cap PO HS PRN Insomnia Zinc Sulfate 220 mg 08/24/20 19:30 08/27/20 08:55 Zinc Sulfate 220 Mg Cap PO 220 mg DAILY [facility] Administration Intake and Output 08/27/20 08/28/20 08/28/20 22:59 06:59 14:59 Intake Total 250 457.999 Balance 250 457.999 Intake: Intake, IV Titration 250 7.999 Amount DOPamine DRIP 800 mg In 7.999 Dextrose/Water 1 250ml. bag @ 2.5 MCG/KG/MIN 4.21 mls/hr IV .Q24H [facility] Rx#: [id number] Remdesivir 100 mg In 250 Sodium Chloride 0.9% 250 ml @ 250 mls/hr IVPB DAILY@1200 [facility] Rx#: [id number] Oral 450 Other: Voiding Method Toilet # Voids 4 2 Weight 53 kg Patient Weight 08/29/20 06:59 Weight 53 kg 08/27/20 05:55 08/27/20 05:55 EKG Interpretations (text) Initially sinus rhythm with a heart rate of 86 with subsequent EKG showing sinus bradycardia Assessment and Plan Assessment: #1 COVID-19 with pneumonia #2 right upper lobe lung mass #3 marked sinus bradycardia #4 diabetes mellitus type 2 #4 hypothyroidism, currently euthyroid Plan: From cardiology perspective, the patient's bradycardia is asymptomatic. She is in sinus mechanism. She is currently not on any rate lowering medications. Although rare, there have been some instances of bradycardia with remdesvimir. Infectious disease is okay with patient not receiving full course of remdesvimir. We will stop this and monitor the patient for another 24 hours. Further recommendations will be made depending on patient's response. The above dictated assessment and findings were discussed with signing physician . The impression and plan of care have been directed as dictated. Makenzie Gilmore, Nurse Practitioner, acting as scribe for signing physician.
[2020-08-28] MEDS ORDERED: ACETAMINOPHEN TAB 325 MG TAB PO PRN (11:10)
[2020-08-28 12:28] LABS: Glucose,Whole Blood 154 mg/dL (75-99)
[2020-08-28 17:00] LABS: Glucose,Whole Blood 268 mg/dL (75-99)
[2020-08-28 20:11] LABS: Glucose,Whole Blood 291 mg/dL (75-99)
--- NOTE | 2020-08-28 20:48 | PN ---
PROGRESS NOTE DATE OF SERVICE: 08/28/2020 REASON FOR FOLLOWUP: COVID-19 pneumonia. INTERVAL HISTORY: Patient is currently afebrile. She was noted to have significant mild bradyarrhythmia yesterday and has been transferred to telemetry. She was on the vent for short time, currently off. Patient denies having any chest pain or shortness of breath. Minimal cough. No nausea, vomiting, abdominal pain or diarrhea. PHYSICAL EXAMINATION: Blood pressure is 132/87, pulse of 51, temperature 98.1. She is 97% on room air. General description is a middle-aged female lying in bed in no distress. Respiratory system: Unlabored breathing, decreased breath sounds at bases, no wheeze. Heart S1, S2. Regular rate and rhythm abdomen. Abdomen soft, no tenderness. LABS: No new labs have been obtained today. DIAGNOSTIC IMPRESSION AND PLAN: Patient with acute COVID-19 pneumonia. This patient's Remdesivir therapy had to be discontinued because of significant bradycardia. The patient did have overall improvement and is currently on room air. No need for further Remdesivir at this point. Continue with dexamethasone, iron sulfate and Lovenox and continue supportive care. MMODL / IJN: [id number] /
--- NOTE | 2020-08-28 23:08 | P.PN ---
Subjective Progress Note Date: 08/27/20 Principal diagnosis: Covid 19 Pneumonia This is a 34-year-old female who was recently admitted with shortness of breath and cold symptoms and is being closely monitored. Patient was found to be Covid 19 positive. Infectious disease following. Patient is maintained on Lovenox, dexamethasone, zinc, vitamin C and D supplements and will continue this time. Blood sugars were found to be extremely elevated on admission and have improved although continue to be elevated. patient is maintained on sliding scale and will add long-acting 20 units daily . Patient is also currently receiving Remdesivir. Oxygen saturations has improved and patient is currently on room air at 93-94%. Patient instructed to continue with incentive spirometer at least 10 times every hour while awake and increase activity as tolerated. Patient does have an inhaler at the bedside. Patient states she is feeling much better today. 08/26/2020 Patient is seen and evaluated in follow-up with acute Covid 19 and is being closely monitored. Infectious disease is following. She continues to have elevated blood sugars and was briefly placed back on insulin drip last night which is now on hold and will be discontinued. Patient will be given 30 units of Levemir now and will continue daily along with sliding scale and 2 units of aspart 3 times a day with meals. Patient remains on steroids and will continue this time. Patient is currently receiving Remdesivir and will continue to monitor closely. Patient presently denies any shortness of breath and oxygen saturation is currently at 96% room air. Patient instructed to continue using the incentive spirometer at least 10 times every hour while awake. Patient is tolerating diet with no reports of nausea or vomiting noted. Will repeat a.m. labs. 08/27/2020 Patient is currently sitting in the chair comfortably. Saturating well on room air. Otherwise blood sugars are still elevated. Heart rate is in 30s and patient will be transferred to telemetry unit. Patient denied any dizziness or lightheadedness. Review of systems: Constitutional: No reports of fatigue, fever, or chills Cardiovascular: No reports of chest pain or palpitations Respiratory: No reports of shortness of breath, reports occasional cough GI: No reports of nausea, vomiting, or diarrhea : No reports of dysuria or retention Neurovascular: No reports of weakness or numbness All medications have been reviewed Objective - Vital Signs Vital signs: Vital Signs Temp 98.2 F 08/27/20 11:05 Pulse 36 L 08/27/20 11:05 Resp 12 08/27/20 11:05 BP 149/85 08/27/20 11:05 Pulse Ox 95 08/27/20 11:05 Intake & Output 08/26/20 08/27/20 08/27/20 18:59 06:59 18:59 Intake Total 720 Balance 720 Intake: Oral 720 Other: Voiding Method Toilet # Voids 4 1 - Exam - Exam Gen: This is a 34-year-old female, sitting up in bed, awake, alert and oriented 3, well-developed, well-nourished. Temp is 97.8F, pulse is 44, respirations are 18, blood pressure is 136/86, oxygen saturation is 96% on room air. HEENT: Head is atraumatic, normocephalic. Pupils equal, round. Sclerae is anicteric. NECK: Supple. No JVD. No lymphadenopathy. No thyromegaly. LUNGS: Diminished breath sounds bilaterally with some scattered rhonchi noted. No intercostal retractions. HEART: S1, S2 are muffled with no murmur noted ABDOMEN: Soft. Bowel sounds are present. No masses. No tenderness. EXTREMITIES: No pedal edema. No calf tenderness. NEUROLOGICAL: Patient is awake, alert and oriented x3. Cranial nerves 2 through 12 are grossly intact. - Labs CBC & Chem 7: 08/27/20 05:55 08/27/20 05:55 Labs: Abnormal Lab Results - Last 24 Hours (Table) 08/26/20 08/27/20 08/27/20 Range/Units 20:45 01:57 05:55 Chloride 112 H (96-109) mmol/L BUN/Creatinine Ratio 22.22 H (12.00-20.00) Ratio Glucose 162 H (70-110) mg/dL POC Glucose (mg/dL) 395 H 250 H (75-99) mg/dL 08/27/20 08/27/20 08/27/20 Range/Units 07:41 11:08 17:21 Chloride (96-109) mmol/L BUN/Creatinine Ratio (12.00-20.00) Ratio Glucose (70-110) mg/dL POC Glucose (mg/dL) 125 H 250 H 328 H (75-99) mg/dL Assessment and Plan Assessment: Acute Covid 19 infection and possible bilateral pneumonia with possible hypoxic and acute hypoxic respiratory failure with sepsis, present on admission Diabetes mellitus type 2, uncontrolled with hyperosmolar state with no evidence of diabetic ketoacidosis bradycardia Elevated plasma lactic acid secondary to sepsis, present on admission Increased AST, ALT with hepatitis of undetermined origin Increased CRP history of diabetes mellitus type 2 history of hypothyroidism history of cholecystectomy history of depression Full code Recommendations and discussion: Recommend to continue current medications, management, and symptomatic treatment. Patient is maintained on Lovenox, dexamethasone, zinc, vitamin C and D and will continue at this time. Infectious disease following. Patient has been started on Remdesivir. Continue with sliding scale and monitor blood sugars before meals at bedtime and monitor closely. Levemir 30 units along with 2 units of aspart 3 times a day with meals will be added. Insulin drip that was initiated briefly last night has been discontinued. Maintaining oxygen saturations on room air of 96%. Instructed the patient to continue using incentive spirometer at least 10 times every hour while awake and continue to increase activity as tolerated. Due to multiple complex medical issues, prognosis is guarded. Further recommendations to follow. Time with Patient: Greater than 30
--- NOTE | 2020-08-28 23:10 | P.PN ---
Subjective Progress Note Date: 08/28/20 Principal diagnosis: Covid 19 Pneumonia This is a 34-year-old female who was recently admitted with shortness of breath and cold symptoms and is being closely monitored. Patient was found to be Covid 19 positive. Infectious disease following. Patient is maintained on Lovenox, dexamethasone, zinc, vitamin C and D supplements and will continue this time. Blood sugars were found to be extremely elevated on admission and have improved although continue to be elevated. patient is maintained on sliding scale and will add long-acting 20 units daily . Patient is also currently receiving Remdesivir. Oxygen saturations has improved and patient is currently on room air at 93-94%. Patient instructed to continue with incentive spirometer at least 10 times every hour while awake and increase activity as tolerated. Patient does have an inhaler at the bedside. Patient states she is feeling much better today. 08/26/2020 Patient is seen and evaluated in follow-up with acute Covid 19 and is being closely monitored. Infectious disease is following. She continues to have elevated blood sugars and was briefly placed back on insulin drip last night which is now on hold and will be discontinued. Patient will be given 30 units of Levemir now and will continue daily along with sliding scale and 2 units of aspart 3 times a day with meals. Patient remains on steroids and will continue this time. Patient is currently receiving Remdesivir and will continue to monitor closely. Patient presently denies any shortness of breath and oxygen saturation is currently at 96% room air. Patient instructed to continue using the incentive spirometer at least 10 times every hour while awake. Patient is tolerating diet with no reports of nausea or vomiting noted. Will repeat a.m. labs. 08/27/2020 Patient is currently sitting in the chair comfortably. Saturating well on room air. Otherwise blood sugars are still elevated. Heart rate is in 30s and patient will be transferred to telemetry unit. Patient denied any dizziness or lightheadedness. 08/28/2020 Patient is currently sitting on the side of the bed. No complaints of chest pain or shortness breath. Blood sugar is well controlled. Patient is still bradycardic. Denied any dizziness or lightheadedness. No weakness. Patient was seen by cardiology and suspected bradycardia could be due to remdesivir and has been discontinued. We will hold dexamethasone as well tomorrow due to hyperglycemia and since the patient is saturating well above 94% on room air. ID is on board. Anticipate discharge in the next 24 hours. Review of systems: Constitutional: No reports of fatigue, fever, or chills Cardiovascular: No reports of chest pain or palpitations Respiratory: No reports of shortness of breath, reports occasional cough GI: No reports of nausea, vomiting, or diarrhea : No reports of dysuria or retention Neurovascular: No reports of weakness or numbness All medications have been reviewed Objective - Vital Signs Vital signs: Vital Signs Temp 98.1 F 08/28/20 08:00 Pulse 51 L 08/28/20 12:00 Resp 20 08/28/20 12:00 BP 132/89 08/28/20 12:00 Pulse Ox 97 08/28/20 12:00 Intake & Output 08/27/20 08/28/20 08/28/20 18:59 06:59 18:59 Intake Total 250 457.999 360 Balance 250 457.999 360 Weight 53 kg Intake: Intake, IV Titration 250 7.999 Amount DOPamine DRIP 800 mg In 7.999 Dextrose/Water 1 250ml. bag @ 2.5 MCG/KG/MIN 4.21 mls/hr IV .Q24H NATHANAEL Rx#: [id number] Remdesivir 100 mg In 250 Sodium Chloride 0.9% 250 ml @ 250 mls/hr IVPB DAILY@1200 [facility] Rx#: [id number] Oral 450 360 Other: Voiding Method Toilet Toilet # Voids 4 2 2 # Bowel Movements 0 - Exam - Exam Gen: This is a 34-year-old female, sitting up in bed, awake, alert and oriented 3, well-developed, well-nourished. Temp is 97.8F, pulse is 44, respirations are 18, blood pressure is 136/86, oxygen saturation is 96% on room air. HEENT: Head is atraumatic, normocephalic. Pupils equal, round. Sclerae is anicteric. NECK: Supple. No JVD. No lymphadenopathy. No thyromegaly. LUNGS: Diminished breath sounds bilaterally with some scattered rhonchi noted. No intercostal retractions. HEART: S1, S2 are muffled with no murmur noted ABDOMEN: Soft. Bowel sounds are present. No masses. No tenderness. EXTREMITIES: No pedal edema. No calf tenderness. NEUROLOGICAL: Patient is awake, alert and oriented x3. Cranial nerves 2 through 12 are grossly intact. - Labs CBC & Chem 7: 08/27/20 05:55 08/27/20 05:55 Labs: Abnormal Lab Results - Last 24 Hours (Table) 08/27/20 08/27/20 08/28/20 Range/Units 20:06 21:56 01:53 POC Glucose (mg/dL) 384 H 295 H 136 H (75-99) mg/dL 08/28/20 08/28/20 08/28/20 Range/Units 06:11 06:23 06:44 POC Glucose (mg/dL) 66 L 65 L 116 H (75-99) mg/dL 08/28/20 08/28/20 Range/Units 12:20 16:57 POC Glucose (mg/dL) 154 H 268 H (75-99) mg/dL Assessment and Plan Assessment: Acute Covid 19 infection and possible bilateral pneumonia with possible hypoxic and acute hypoxic respiratory failure with sepsis, present on admission Diabetes mellitus type 2, uncontrolled with hyperosmolar state with no evidence of diabetic ketoacidosis bradycardia. Remdesivir on hold. Elevated plasma lactic acid secondary to sepsis, present on admission Increased AST, ALT with hepatitis of undetermined origin Increased CRP history of diabetes mellitus type 2 history of hypothyroidism history of cholecystectomy history of depression Full code Recommendations and discussion: Recommend to continue current medications, management, and symptomatic treatment. Tele Patient is maintained on Lovenox, dexamethasone, zinc, vitamin C and D and will continue at this time. Infectious disease following. Patient has been started on Remdesivir. Continue with sliding scale and monitor blood sugars before meals at bedtime and monitor closely. Levemir 30 units along with 2 units of aspart 3 times a day with meals will be added. Insulin drip that was initiated briefly last night has been discontinued. Maintaining oxygen saturations on room air of 96%. Instructed the patient to continue using incentive spirometer at least 10 times every hour while awake and continue to increase activity as tolerated. Due to multiple complex medical issues, prognosis is guarded. Further recommendations to follow. Time with Patient: Greater than 30
[2020-08-29 02:21] LABS: Glucose,Whole Blood 171 mg/dL (75-99)
[2020-08-29] MEDS: SODIUM CHLORIDE 0.9% 1,000 ML IV SCH ×2 (02:32→10:29)
[2020-08-29] MEDS: INSULIN ASPART (NovoLOG) 100 UNIT/ML VIAL SQ SCH ×5 (02:38→12:44)
[2020-08-29 06:13] LABS: Glucose,Whole Blood 84 mg/dL (75-99)
[2020-08-29] MEDS: LEVOTHYROXINE 75 MCG TAB PO SCH (06:35)
[2020-08-29] MEDS: LEVOTHYROXINE 88 MCG TAB PO SCH (06:37)
[2020-08-29] MEDS: ALBUTEROL HFA INHALER INHALATION SCH ×2 (08:23→12:28)
[2020-08-29 09:27] LABS: Basophils % (A) 0 %; Eosinophils % (A) 0 %; HCT 36.7 % (34.0-46.0); Lymphocytes # (A) 1.9 k/uL (1.0-4.8); Lymphocytes % (A) 22 %; MCH 31.9 pg (25.0-35.0); MCHC 35.3 g/dL (31.0-37.0); MCV 90.3 fL (80.0-100.0); Mean Platelet Volume 8.4; Monocytes # (A) 0.4 k/uL (0-1.0); Monocytes % (A) 4 %; Neutrophils # (A) 6.4 k/uL (1.3-7.7); Neutrophils % (A) 73 %; Platelet Count 309 k/uL (150-450); RBC 4.06 m/uL (3.80-5.40); RDW 12.8 % (11.5-15.5); WBC 8.7 k/uL (3.8-10.6)
[2020-08-29 09:41] LABS: African American GFR (CKD) >90 (>60 ml/min/1.73 sqM); Anion Gap 7 mmol/L; Blood Urea Nitrogen 13 mg/dL (7-17); Calcium 9.5 mg/dL (8.4-10.2); Carbon Dioxide 28 mmol/L (22-30); Chloride 108 mmol/L (98-107); Glucose 105 mg/dL (74-99); Non-African American GFR(CKD) >90 (>60 ml/min/1.73 sqM); Potassium 4.6 mmol/L (3.5-5.1); Sodium 143 mmol/L (137-145)
[2020-08-29] MEDS: LOSARTAN 25 MG TAB PO SCH (10:22)
[2020-08-29] MEDS: ZINC SULFATE 220 MG CAP PO SCH (10:23)
[2020-08-29] MEDS: metFORMIN 500 MG TAB PO SCH (10:23)
[2020-08-29] MEDS: CHOLECALCIFEROL 1,000 UNIT TAB PO SCH (10:23)
[2020-08-29] MEDS: FAMOTIDINE 20 MG TAB PO SCH (10:23)
[2020-08-29] MEDS: ENOXAPARIN 40 MG/0.4 ML SYRINGE SQ SCH (10:24)
[2020-08-29] MEDS: ASCORBIC ACID 500 MG TAB PO SCH (10:24)
[2020-08-29] MEDS: INSULIN DETEMIR (LEVEMIR) 100 UNIT/ML SYR SQ SCH (10:24)
[2020-08-29 10:35] VITALS: RESP 17; TEMP 98.7
[2020-08-29 11:34] LABS: Glucose,Whole Blood 115 mg/dL (75-99)
[2020-08-29 13:46] VITALS: BP 126/77; PULSE 72
--- NOTE | 2020-08-29 14:29 | P.DS ---
Providers Date of admission: 08/24/20 16:33 Attending physician: Behzad Grijalva Consults: 08/24/20 18:23 Consult Physician Routine Consulting Provider: Eric Castro Consult Reason/Comments: covid, currently o2 dependent, candidate fro remdesivir? Do you want consulting provider notified?: Yes 08/27/20 16:16 Consult Physician Routine Consulting Provider: Tanvir Santos Consult Reason/Comments: Heartrate 30's Do you want consulting provider notified?: Yes Primary care physician: [facility] Course: 34-year-old female who was recently admitted with shortness of breath and cold symptoms and is being closely monitored. Patient was found to be Covid 19 positive. Infectious disease following. Patient is maintained on Lovenox, dexamethasone, zinc, vitamin C and D supplements and will continue this time. Blood sugars were found to be extremely elevated on admission and have improved although continue to be elevated. patient is maintained on sliding scale and will add long-acting 20 units daily . Patient is also currently receiving Remdesivir. Oxygen saturations has improved and patient is currently on room air at 93-94%. Patient instructed to continue with incentive spirometer at least 10 times every hour while awake and increase activity as tolerated. Patient does have an inhaler at the bedside. Patient states she is feeling much better today. 08/26/2020 Patient is seen and evaluated in follow-up with acute Covid 19 and is being closely monitored. Infectious disease is following. She continues to have elevated blood sugars and was briefly placed back on insulin drip last night which is now on hold and will be discontinued. Patient will be given 30 units of Levemir now and will continue daily along with sliding scale and 2 units of aspart 3 times a day with meals. Patient remains on steroids and will continue this time. Patient is currently receiving Remdesivir and will continue to monitor closely. Patient presently denies any shortness of breath and oxygen saturation is currently at 96% room air. Patient instructed to continue using the incentive spirometer at least 10 times every hour while awake. Patient is tolerating diet with no reports of nausea or vomiting noted. Will repeat a.m. labs. 08/27/2020 Patient is currently sitting in the chair comfortably. Saturating well on room air. Otherwise blood sugars are still elevated. Heart rate is in 30s and patient will be transferred to telemetry unit. Patient denied any dizziness or lightheadedness. 08/28/2020 Patient is currently sitting on the side of the bed. No complaints of chest pain or shortness breath. Blood sugar is well controlled. Patient is still bradycardic. Denied any dizziness or lightheadedness. No weakness. Patient was seen by cardiology and suspected bradycardia could be due to remdesivir and has been discontinued. We will hold dexamethasone as well tomorrow due to hyperglycemia and since the patient is saturating well above 94% on room air. ID is on board. Anticipate discharge in the next 24 hours. 08/29/2020 Patient blood sugars are well controlled at this time patient blood sugars are actually in bit on the higher side at home as per the patient. Patient will not be started on any new medications for elevated blood sugars as I believe these are because of the systemic steroids patient was asked to check the blood sugar twice a day and for the titration of her medications can be done as an outpatient with PCP. Patient will be discharged today. Patient will not require any Decadron. Patient had acuity prolongation because of which the patient will not continue her azithromycin either. Patient's steroids will be discontinued as they are not beneficial for his as patient is not hypoxic doesn't have any symptoms clinically doing well at this time. PHYSICAL EXAMINATION: GENERAL: The patient is alert and oriented x3, not in any acute distress. Well developed, well nourished. HEENT: Pupils are round and equally reacting to light. EOMI. No scleral icterus. No conjunctival pallor. Normocephalic, atraumatic. No pharyngeal erythema. No thyromegaly. CARDIOVASCULAR: S1 and S2 present. No murmurs, rubs, or gallops. PULMONARY: Chest is clear to auscultation, no wheezing or crackles. ABDOMEN: Soft, nontender, nondistended, normoactive bowel sounds. No palpable organomegaly. MUSCULOSKELETAL: No joint swelling or deformity. EXTREMITIES: No cyanosis, clubbing, or pedal edema. NEUROLOGICAL: Gross neurological examination did not reveal any focal deficits. SKIN: No rashes. Note: Because of COVID 19 isolation, some of the history and physical exam findings are indirect and obtained from nursing staff, and other physician examinations to avoid unnecessary contact with the patient. Assessment and Plan Assessment: Covid 19 infection and bilateral pneumonia Diabetes mellitus type 2, uncontrolled with hyperosmolar state with no evidence of diabetic ketoacidosis or tinnitus steroids which will be discontinued bradycardia. Secondary to Remdesivir is being held Elevated plasma lactic acid secondary to sepsis, present on admission Increased AST, ALT with hepatitis from assessment #1 Increased CRP diabetes mellitus type 2 hypothyroidism Patient Condition at Discharge: Stable Plan - Discharge Summary Discharge Rx Participant: No New Discharge Prescriptions: New Zinc Sulfate [Orazinc] 220 mg PO DAILY #30 cap Continue metFORMIN HCL [metFORMIN HCL ER] 750 mg PO BID Levothyroxine Sodium [Synthroid] 150 mcg PO SUTUWEFRSA Benzonatate [Tessalon Perles] 200 mg PO Q8H PRN #15 capsule PRN Reason: Cough Candesartan Cilexetil 12 mg PO DAILY Levothyroxine Sodium [Synthroid] 175 mcg PO MOTH Dulaglutide [Trulicity] 1.5 mg SQ INGRAM Albuterol Inhaler [Ventolin Hfa Inhaler] 2 puff INHALATION RT-QID Discontinued methylPREDNISolone [Medrol Dose Pack] See Taper PO DIRECTED Azithromycin [Zithromax Z-pack (6 tabs)] See Taper PO DIRECTED Discharge Medication List Levothyroxine Sodium [Synthroid] 150 mcg PO SUTUWEFRSA 04/15/18 [History] metFORMIN HCL [metFORMIN HCL ER] 750 mg PO BID 04/15/18 [History] Benzonatate [Tessalon Perles] 200 mg PO Q8H PRN #15 capsule 08/20/20 [Rx] Candesartan Cilexetil 12 mg PO DAILY 08/20/20 [History] Dulaglutide [Trulicity] 1.5 mg SQ INGRAM 08/20/20 [History] Levothyroxine Sodium [Synthroid] 175 mcg PO MOTH 08/20/20 [History] Albuterol Inhaler [Ventolin Hfa Inhaler] 2 puff INHALATION RT-QID 08/24/20 [History] Zinc Sulfate [Orazinc] 220 mg PO DAILY #30 cap 08/29/20 [Rx] Follow up Appointment(s)/Referral(s): Todd Kaur DO [Doctor of Osteopathic Medicine] - 09/29/20 1:45 pm Joe South DO [Primary Care Provider] - 3 Days Discharge Disposition: HOME SELF-CARE
--- NOTE | 2020-08-29 15:11 | PN ---
PROGRESS NOTE DATE OF SERVICE: 08/29/2020. REASON FOR FOLLOWUP: Acute COVID-19 infection. INTERVAL HISTORY: The patient is currently afebrile. Patient is feeling better, she is breathing comfortably. Denies having any chest pain or shortness of breath or cough. Still has slight nausea, vomiting this morning. PHYSICAL EXAMINATION: Blood pressure 135/96, pulse of 65, temperature 99.5. She is 95% on room air. General description is a young female, lying in bed in no distress. RESPIRATORY SYSTEM: Unlabored breathing, clear to auscultation anteriorly. HEART S1, S2. Regular rate and rhythm. ABDOMEN: Soft, no tenderness. LABS: Hemoglobin is 13.8, white count of 8.7, BUN of 17, creatinine 0.81. DIAGNOSTIC IMPRESSION AND PLAN: 1. Patient with acute COVID-19 infection, the patient has received 3 doses of Remdesivir, subsequently to have which has been discontinued. Patient heart rate has improved, currently Lovenox. . 2. Continue supportive care. MMODL / IJN: [id number] /
== END 2020-08-29 14:36 | disposition home or self-care (01) | DRG 871 ==
LOC: EC 14:00 → 6NMEDSUR 16:33 → 3SCARD 08-28 02:12
PROVIDERS: ADMIT Hospitalist; ATTEND Hospitalist
PROC: XW033E5 Introduction of Remdesivir Anti-infective into Peripheral Vein, Percutaneous Approach, New Technology Group 5 (ICD-10-PCS; principal; 2020-08-24)
DX: A41.89 Other specified sepsis (principal); U07.1 COVID-19; J12.89 Other viral pneumonia; J96.01 Acute respiratory failure with hypoxia; E11.00 Type 2 diabetes mellitus with hyperosmolarity without nonketotic hyperglycemic-hyperosmolar coma (NKHHC); J98.11 Atelectasis; F32.9 Major depressive disorder, single episode, unspecified; T38.0X5A Adverse effect of glucocorticoids and synthetic analogues, initial encounter; K75.9 Inflammatory liver disease, unspecified; I49.8 Other specified cardiac arrhythmias; E03.9 Hypothyroidism, unspecified; D72.810 Lymphocytopenia; Z79.84 Long term (current) use of oral hypoglycemic drugs; Z79.890 Hormone replacement therapy; Z90.49 Acquired absence of other specified parts of digestive tract; Z88.2 Allergy status to sulfonamides; Z83.3 Family history of diabetes mellitus
CPT/HCPCS: 36415; 71045; 71250; 80048; 80053; 81003; 81025; 82009; 82728; 83036; 83605; 83615; 83735; 84145; 84436; 84443; 84484; 85025; 85379; 85610; 85730; 86140; 93005; 93306; 94640; 96360; 96361; 99285

== ENCOUNTER → 2020-10-07 | Outpatient (CLI) | payer MEDICAID, BC ==
[2020-10-07 16:11] LABS: African American GFR (CKD) >90 (>60 ml/min/1.73 sqM); Blood Urea Nitrogen 12 mg/dL (7-17); Non-African American GFR(CKD) >90 (>60 ml/min/1.73 sqM)
--- NOTE | 2020-10-07 22:33 | CT ---
EXAMINATION TYPE: CT chest w con DATE OF EXAM: 10/07/2020 COMPARISON: 08/24/2020. HISTORY: Covid related pneumonia. Pt sick in July. Pt not c/o any issues currently CT DLP: 511 mGycm Automated exposure control for dose reduction was used. CONTRAST: CT scan of the chest is performed with IV Contrast, patient injected with 100 mL of Isovue 300. FINDINGS: LUNGS: The lungs are grossly clear. There is interval resolution of previous patchy airspace opacitie s. There is unchanged 1.7 cm right upper lobe nodule. There is no pleural effusion or pneumothorax seen. The tracheobronchial tree is patent. MEDIASTINUM: There are no greater than 1 cm hilar or mediastinal lymph nodes. No pericardial effusi on is seen. OTHER: No additional significant abnormality is seen. Hepatic steatosis and cholecystectomy are note d. IMPRESSION: No acute cardiopulmonary abnormality. Interval resolution of previous airspace opacities. Unchanged 1.7 cm right upper lobe nodule. Recommend follow-up in 6 months to one year to document sta bility.
== END | disposition home or self-care (01) ==
LOC: RADCTMAIN 15:21
PROVIDERS: ATTEND Internal Medicine Critical Care Medicine
DX: R91.8 Other nonspecific abnormal finding of lung field (principal); Z86.16 Personal history of COVID-19
CPT/HCPCS: 82565; 84520; 71260; 36415; Q9967

== ENCOUNTER → 2020-11-25 | Outpatient (CLI) | payer MEDICAID, BC ==
--- NOTE | 2020-11-26 14:11 | PE ---
EXAMINATION TYPE: PET CT fusion skull to thigh DATE OF EXAM: 11/25/2020 COMPARISON: Chest CT October 07, 2020. HISTORY: Solitary pulmonary nodule. Abnormal chest CT. TECHNIQUE: Following the intravenous administration of 10.51 mCi of F-18 FDG, whole body images are performed from the skull base to the midthigh. Images are reviewed on the computer in the coronal, a xial, and sagittal planes. Reconstructed rotating images are created on independent workstation and reviewed on the computer. A localization and attenuation correction CT is performed in conjunction with the PET scan. Blood glucose level was 100. SCAN: Initial Scan FINDINGS: SKULL BASE AND NECK: No suspicious hypermetabolic uptake. CHEST, MEDIASTINUM, AND HILAR REGION: Redemonstration of anterior 1.7 cm right upper lobe nodule well circumscribed axial image 79 is ametabolic. No areas of abnormal hypermetabolic uptake. ABDOMEN AND PELVIS: No areas of abnormal hypermetabolic uptake. Normal excretion is seen. Nonspecific bowel uptake greatest in the pelvis. OSSEOUS STRUCTURES: No areas of abnormal hypermetabolic uptake. OTHER CT: Liver diffusely low dense consistent with diffuse fatty infiltration. Cholecystectomy clips . IMPRESSION: Stable 1.7 cm well-circumscribed anterior right upper lobe nodule is ametabolic, malignan t neoplasm felt unlikely in patient of this age. Consider CT follow-up in 1 to 2 years time to docume nt stability in size.
== END ==
LOC: RADPETMAIN 15:37
PROVIDERS: ATTEND Internal Medicine Critical Care Medicine
DX: R91.1 Solitary pulmonary nodule (principal)
CPT/HCPCS: 78815; A9552

== ENCOUNTER → 2021-12-01 | Outpatient (CLI) | payer MEDICAID, BC ==
--- NOTE | 2021-12-01 20:20 | PE ---
EXAMINATION TYPE: PET CT fusion skull to thigh DATE OF EXAM: 12/01/2021 COMPARISON: Prior PET/CT November 25, 2020 and older studies HISTORY: Solitary pulmonary nodule. TECHNIQUE: Following the intravenous administration of 9.79 mCi of F-18 FDG, whole body images are p erformed from the skull base to the midthigh. Images are reviewed on the computer in the coronal, ax ial, and sagittal planes. Reconstructed rotating images are created on independent workstation and r eviewed on the computer. A localization and attenuation correction CT is performed in conjunction w ith the PET scan. Blood glucose level equals 133. SCAN: Initial Scan FINDINGS: SKULL BASE AND NECK: No suspicious hypermetabolic uptake. CHEST, MEDIASTINUM, AND HILAR REGION: Redemonstration of stable anterior 1.7 cm right upper lobe well -circumscribed nodule axial image 77 remains ametabolic. No areas of abnormal hypermetabolic uptake. ABDOMEN AND PELVIS: No areas of abnormal hypermetabolic uptake. Normal excretion is seen. Nonspecific bowel uptake greatest in the pelvis is less prominent versus prior. OSSEOUS STRUCTURES: No areas of abnormal hypermetabolic uptake. OTHER CT: Liver diffusely low dense consistent with diffuse fatty infiltration. Cholecystectomy clips are redemonstrated. IMPRESSION: Stable ametabolic 1.7 cm well-circumscribed anterior right upper lobe nodule is presumed benign. No significant change from prior PET/CT. No new areas of abnormal hypermetabolic uptake iden tified.
== END | disposition home or self-care (01) ==
LOC: RADPETMAIN 09:03
PROVIDERS: ATTEND Internal Medicine Critical Care Medicine
DX: R91.1 Solitary pulmonary nodule (principal)
CPT/HCPCS: 78815; A9552

== ENCOUNTER → 2022-02-24 | Outpatient (CLI) | payer MEDICAID, BC ==
[2022-02-24 11:44] LABS: ALT 53 U/L (8-44); AST 28 U/L (13-35); African American GFR (CKD) 128.3 (60.0-200.0); Albumin 4.6 g/dL (3.8-4.9); Albumin/Globulin Ratio 1.77 (1.60-3.17); Alkaline Phosphatase 82 U/L (41-126); BUN/Creat Ratio 19.57 Ratio (12.00-20.00); Blood Urea Nitrogen 13.7 mg/dL (9.0-27.0); Calcium 9.6 mg/dL (8.7-10.3); Carbon Dioxide 22.9 mmol/L (20.0-27.5); Chloride 104 mmol/L (96-109); Chol/HDL Ratio 3.39 Ratio; Globulin 2.6 g/dL (1.6-3.3); Glucose 148 mg/dL (70-110); LDL Cholesterol,Calculated 84.4 mg/dL (0.0-131.0); Non-African American GFR(CKD) 110.7 (60.0-200.0); Potassium 4.8 mmol/L (3.5-5.5); Sodium 139 mmol/L (135-145); Total Protein 7.2 g/dL (6.2-8.2)
== END | disposition home or self-care (01) ==
LOC: LABWHC1 08:19
PROVIDERS: ATTEND Internal Medicine Endocrinology, Diabetes & Metabolism
DX: E11.65 Type 2 diabetes mellitus with hyperglycemia (principal); E03.8 Other specified hypothyroidism
CPT/HCPCS: 36415; 80053; 80061; 82043; 82570; 83036; 84443

== ENCOUNTER → 2022-04-12 | Outpatient (CLI) | payer MEDICAID | END | disposition home or self-care (01) | LOC: LABWHC1 15:31 | PROVIDERS: ATTEND Obstetrics & Gynecology Obstetrics | DX: Z30.09 Encounter for other general counseling and advice on contraception (principal) | CPT/HCPCS: 36415; 83001 ==

== ENCOUNTER → 2022-06-16 | Outpatient (CLI) | payer MEDICAID, BC ==
[2022-06-16 16:57] LABS: ALT 47 U/L (8-44); AST 32 U/L (13-35); African American GFR (CKD) 114.3 (60.0-200.0); Albumin 4.5 g/dL (3.8-4.9); Albumin/Globulin Ratio 1.53 (1.60-3.17); Alkaline Phosphatase 71 U/L (41-126); BUN/Creat Ratio 13.51 Ratio (12.00-20.00); Blood Urea Nitrogen 10.4 mg/dL (9.0-27.0); Calcium 9.5 mg/dL (8.7-10.3); Carbon Dioxide 24.7 mmol/L (20.0-27.5); Chloride 103 mmol/L (96-109); Chol/HDL Ratio 3.42 Ratio; Globulin 2.9 g/dL (1.6-3.3); Glucose 120 mg/dL (70-110); LDL Cholesterol,Calculated 85.3 mg/dL (0.0-131.0); Non-African American GFR(CKD) 98.6 (60.0-200.0); Potassium 4.9 mmol/L (3.5-5.5); Sodium 140 mmol/L (135-145); Total Protein 7.4 g/dL (6.2-8.2)
[2022-06-16 19:10] LABS: Microalbumin Creatinine Ratio <30 mg/g Creat (0-30)
== END | disposition home or self-care (01) ==
LOC: LABWHC1 09:16
PROVIDERS: ATTEND Internal Medicine Endocrinology, Diabetes & Metabolism
DX: E11.65 Type 2 diabetes mellitus with hyperglycemia (principal)
CPT/HCPCS: 36415; 80053; 80061; 82043; 82570; 83036; 84443

== ENCOUNTER → 2022-12-15 | Outpatient (CLI) | payer MEDICAID ==
[2022-12-15 17:56] LABS: ALT 40 U/L (8-44); AST 30 U/L (13-35); African American GFR (CKD) 92.8 (60.0-200.0); Albumin 4.6 g/dL (3.8-4.9); Albumin/Globulin Ratio 1.79 (1.60-3.17); Alkaline Phosphatase 76 U/L (41-126); BUN/Creat Ratio 10.59 Ratio (12.00-20.00); Blood Urea Nitrogen 9.6 mg/dL (9.0-27.0); Calcium 9.7 mg/dL (8.7-10.3); Carbon Dioxide 26.5 mmol/L (20.0-27.5); Chloride 100 mmol/L (96-109); Chol/HDL Ratio 4.14 Ratio; Globulin 2.6 g/dL (1.6-3.3); Glucose 115 mg/dL (70-110); LDL Cholesterol,Calculated 109.7 mg/dL (0.0-131.0); Potassium 4.8 mmol/L (3.5-5.5); Sodium 140 mmol/L (135-145); Total Protein 7.2 g/dL (6.2-8.2)
== END | disposition home or self-care (01) ==
LOC: LABWHC1 08:52
PROVIDERS: ATTEND Internal Medicine Endocrinology, Diabetes & Metabolism
DX: E11.65 Type 2 diabetes mellitus with hyperglycemia (principal)
CPT/HCPCS: 36415; 80053; 80061; 82043; 82570; 83036; 84443

== ENCOUNTER → 2023-03-29 | Outpatient (CLI) | payer MEDICAID ==
[2023-03-29 16:16] LABS: ALT 44 U/L (8-44); AST 26 U/L (13-35); Albumin 4.5 d/dL (3.8-4.9); Albumin/Globulin Ratio 1.96 Ratio (1.60-3.17); Alkaline Phosphatase 58 U/L (41-126); BUN/Creat Ratio 13.71 Ratio (12.00-20.00); Blood Urea Nitrogen 9.6 mg/dL (9.0-27.0); Calcium 9.5 mg/dL (8.7-10.3); Carbon Dioxide 25.8 mmol/L (21.6-31.8); Chloride 105 mmol/L (96-109); Chol/HDL Ratio 3.12 Ratio; Globulin 2.3 d/dL (1.6-3.3); Glucose 107 mg/dL (70-110); LDL Cholesterol,Calculated 78.2 mg/dL (0.0-131.0); Sodium 141 mmol/L (135-145); Total Bilirubin 0.4 mg/dL (0.3-1.2); Total Protein 6.8 d/dL (6.2-8.2); VLDL Calculation 12.84 mg/dL (5.00-40.00)
[2023-03-29 18:38] LABS: Microalbumin Creatinine Ratio <8 mg/g Cr (0-30)
== END | disposition home or self-care (01) ==
LOC: LABWHC1 09:59
PROVIDERS: ATTEND Internal Medicine Endocrinology, Diabetes & Metabolism
DX: E11.65 Type 2 diabetes mellitus with hyperglycemia (principal)
CPT/HCPCS: 36415; 80053; 80061; 82043; 82570; 83036; 84443

== ENCOUNTER → 2023-08-03 | Outpatient (CLI) | payer MEDICAID ==
[2023-08-03 13:56] LABS: ALT 25 U/L (8-44); AST 19 U/L (13-35); Albumin 4.6 g/dL (3.8-4.9); Albumin/Globulin Ratio 1.84 Ratio (1.60-3.17); Alkaline Phosphatase 69 U/L (41-126); BUN/Creat Ratio 15.25 Ratio (12.00-20.00); Blood Urea Nitrogen 12.2 mg/dL (9.0-27.0); Calcium 9.9 mg/dL (8.7-10.3); Carbon Dioxide 25.3 mmol/L (21.6-31.8); Chloride 102 mmol/L (96-109); Chol/HDL Ratio 3.39 Ratio; Globulin 2.5 g/dL (1.6-3.3); Glucose 95 mg/dL (70-110); LDL Cholesterol,Calculated 114.4 mg/dL (0.0-131.0); Potassium 4.6 mmol/L (3.5-5.5); Sodium 138 mmol/L (135-145); Total Bilirubin 0.6 mg/dL (0.3-1.2); Total Protein 7.1 g/dL (6.2-8.2); VLDL Calculation 15.44 mg/dL (5.00-40.00)
[2023-08-03 23:56] LABS: Microalbumin Creatinine Ratio <21 mg/g Cr (0-30); Urine Creatinine 57.4 mg/dL (28.0-217.0)
== END | disposition home or self-care (01) ==
LOC: LABWHC1 08:38
PROVIDERS: ATTEND Internal Medicine Endocrinology, Diabetes & Metabolism
DX: E11.9 Type 2 diabetes mellitus without complications (principal)
CPT/HCPCS: 36415; 80053; 80061; 82043; 82570; 83036; 84443

== ENCOUNTER 2023-09-28 08:15 | Emergency (ER) | payer MEDICAID ==
[2023-09-28 08:26] VITALS: BP 126/79; PULSE 95; RESP 20; TEMP 98.4
--- NOTE | 2023-09-28 08:54 | ED ---
General Adult HPI - General Chief complaint: Recheck/Abnormal Lab/Rx Stated complaint: covid symptoms Time Seen by Provider: 09/28/23 08:31 Source: patient, RN notes reviewed Mode of arrival: ambulatory Limitations: no limitations - History of Present Illness Initial comments: 37-year-old female presents to the emergency room for a chief complaint of na usea and vomiting. Patient states she was diagnosed with COVID with an at-home test yesterday. She has had some body aches that started 7 days ago and fatigue. She has had insomnia for the last few days as well. Patient vomited once this morning which prompted her to come to the emergency room. She is able to tolerate oral intake otherwise. No shortness of breath.Patient has no other complaints at this time including shortness of breath, chest pain, abdominal pain, nausea or vomiting, headache, or visual changes. - Related Data Home Medications Medication Instructions Recorded Confirmed Levothyroxine Sodium [Synthroid] 150 mcg PO SUTUWEFRSA 04/15/18 08/24/20 metFORMIN HCL [metFORMIN HCL ER] 750 mg PO BID 04/15/18 08/24/20 Candesartan Cilexetil 12 mg PO DAILY 08/20/20 08/24/20 Dulaglutide [Trulicity] 1.5 mg SQ INGRAM 08/20/20 08/24/20 Levothyroxine Sodium [Synthroid] 175 mcg PO MOTH 08/20/20 08/24/20 Albuterol Inhaler [Ventolin Hfa 2 puff INHALATION RT-QID 08/24/20 08/24/20 Inhaler] Previous Rx's Medication Instructions Recorded Benzonatate [Tessalon Perles] 200 mg PO Q8H PRN #15 capsule 08/20/20 Zinc Sulfate [Orazinc] 220 mg PO DAILY #30 cap 08/29/20 Ondansetron Odt [Zofran Odt] 4 mg PO Q8HR PRN #14 tab 09/28/23 Allergies Allergy/AdvReac Type Severity Reaction Status Date / Time lisinopril Allergy Anaphylaxis Verified 09/28/23 08:24 Sulfa (Sulfonamide Allergy Rash/Hives Verified 09/28/23 08:24 Antibiotics) Review of Systems ROS Statement: Those systems with pertinent positive or pertinent negative responses have been documented in the HPI. ROS Other: All systems not noted in ROS Statement are negative. Past Medical History Past Medical History: Diabetes Mellitus, Thyroid Disorder Additional Past Medical History / Comment(s): type 2 DM History of Any Multi-Drug Resistant Organisms: None Reported Past Surgical History: Cholecystectomy Past Anesthesia/Blood Transfusion Reactions: No Reported Reaction Past Psychological History: Depression Smoking Status: Never smoker Past Alcohol Use History: None Reported Past Drug Use History: None Reported - Past Family History Father Family Medical History: Diabetes Mellitus Sister(s) Family Medical History: Thyroid Disorder General Exam Limitations: no limitations General appearance: alert, in no apparent distress Head exam: Present: atraumatic Eye exam: Present: normal appearance, PERRL, EOMI ENT exam: Present: normal exam, mucous membranes moist Neck exam: Present: normal inspection, full ROM. Absent: tenderness Respiratory exam: Present: normal lung sounds bilaterally. Absent: respiratory distress, wheezes Cardiovascular Exam: Present: regular rate, normal rhythm, normal heart sounds GI/Abdominal exam: Present: soft, normal bowel sounds. Absent: distended, tenderness Neurological exam: Present: alert Course Vital Signs 09/28/23 08:22 Temperature 98.4 F Pulse Rate 95 Respiratory 20 Rate Blood Pressure 126/79 O2 Sat by Pulse 99 Oximetry Medical Decision Making - Medical Decision Making Was pt. sent in by a medical professional or institution (, PA, MANAGER LAB, urgent care, hospital, or snf...) When possible be specific @ -[No] Did you speak to anyone other than the patient for history (EMS, parent, family, police, friend...)? What history was obtained from this source @ -family member Did you review nursing and triage notes (agree or disagree)? Why? @ -[I reviewed and agree with nursing and triage notes] Were old charts reviewed (outside hosp., previous admission, EMS record, old EKG, old radiological studies, urgent care reports/EKG's, snf records)? Report findings @ -[No old charts were reviewed] Differential Diagnosis (chest pain, altered mental status, abdominal pain women, abdominal pain men, vaginal bleeding, weakness, fever, dyspnea, syncope, headache, dizziness, GI bleed, back pain, seizure, CVA, palpatations, mental health)? @ -COVID, gastroenteritis EKG interpreted by me (3pts min.). @ -none done X-rays interpreted by me (1pt min.). @ -[None done] CT interpreted by me (1pt min.). @ -[None done] U/S interpreted by me (1pt. min.). @ -[None done] What testing was considered but not performed or refused? (CT, X-rays, U/S, labs)? Why? @ -[None] What meds were considered but not given or refused? Why? @ -[None] Did you discuss the management of the patient with other professionals (professionals i.e. , PA, MANAGER LAB, lab, RT, psych nurse, director of social work, creative manager, teacher, operations officer trust department, catalytic case operator)? Give summary @ -[No] Was smoking cessation discussed for >3mins.? @ -[No] Was critical care preformed (if so, how long)? @ -[No] Were there social determinants of health that impacted care today? How? (Homelessness, low income, unemployed, alcoholism, drug addiction, transportation, low edu. Level, literacy, decrease access to med. care, long-term, rehab)? @ -[No] Was there de-escalation of care discussed even if they declined (Discuss DNR or withdrawal of care, Hospice)? DNR status @ -[No] What co-morbidities impacted this encounter? (DM, HTN, Smoking, COPD, CAD, Cancer, CVA, ARF, Chemo, Hep., AIDS, mental health diagnosis, sleep apnea, morbid obesity)? @ -[None] Was patient admitted / discharged? Hospital course, mention meds given and route, prescriptions, significant lab abnormalities, going to OR and other pertinent info. @ - seen and examined. No shortness of breath. Vitals are stable. No vomiting. Patient given Zofran and discharged home. Undiagnosed new problem with uncertain prognosis? @ -[No] Drug Therapy requiring intensive monitoring for toxicity (Heparin, Nitro, Insuli n, Cardizem)? @ -[No] Were any procedures done? @ -[No] Diagnosis/symptom? @ -COVID, nausea and vomiting Acute, or Chronic, or Acute on Chronic? @ -acute Uncomplicated (without systemic symptoms) or Complicated (systemic symptoms)? @ -[default] Side effects of treatment? @ -[No] Exacerbation, Progression, or Severe Exacerbation? @ -[No] Poses a threat to life or bodily function? How? (Chest pain, [place], [place], pneumonia, PE, COPD, DKA, ARF, appy, cholecystitis, CVA, Diverticulitis, Homicidal, Suicidal, threat to staff... and all critical care pts) @ -[No] Discussed with Dr Schwartz Disposition Clinical Impression: COVID, Nausea Disposition: HOME SELF-CARE Condition: Good Instructions (If sedation given, give patient instructions): Acute Nausea and Vomiting (ED), COVID-19 (Coronavirus Disease 2019) (ED) Additional Instructions: Please take Zofran as needed for nausea. Continue oral intake. Follow up with primary care. Return for any worsening symptoms such as shortness of breath. Prescriptions: Ondansetron Odt [Zofran Odt] 4 mg PO Q8HR PRN #14 tab PRN Reason: Nausea Is patient prescribed a controlled substance at d/c from ED?: No Referrals: Joe South DO [Primary Care Provider] - 1-2 days Time of Disposition: 08:53
== END 2023-09-28 09:15 | disposition home or self-care (01) ==
LOC: EC 08:15
DX: U07.1 COVID-19 (principal); E11.9 Type 2 diabetes mellitus without complications; E07.9 Disorder of thyroid, unspecified; F32.A Depression, unspecified; Z79.84 Long term (current) use of oral hypoglycemic drugs; Z79.890 Hormone replacement therapy; Z79.899 Other long term (current) drug therapy; Z88.2 Allergy status to sulfonamides; Z88.8 Allergy status to other drugs, medicaments and biological substances; Z90.49 Acquired absence of other specified parts of digestive tract
CPT/HCPCS: 99283

== ENCOUNTER → 2023-11-02 | Outpatient (CLI) | payer MEDICAID ==
[2023-11-02 13:56] LABS: ALT 21 U/L (8-44); AST 15 U/L (13-35); Albumin 4.6 g/dL (3.8-4.9); Albumin/Globulin Ratio 1.84 Ratio (1.60-3.17); Alkaline Phosphatase 66 U/L (41-126); BUN/Creat Ratio 15.38 Ratio (12.00-20.00); Blood Urea Nitrogen 12.3 mg/dL (9.0-27.0); Calcium 9.6 mg/dL (8.7-10.3); Carbon Dioxide 22.6 mmol/L (21.6-31.8); Chloride 106 mmol/L (96-109); Globulin 2.5 g/dL (1.6-3.3); Glucose 109 mg/dL (70-110); LDL Cholesterol,Calculated 86.9 mg/dL (0.0-131.0); Potassium 5.2 mmol/L (3.5-5.5); Sodium 141 mmol/L (135-145); Total Bilirubin 0.6 mg/dL (0.3-1.2); Total Protein 7.1 g/dL (6.2-8.2)
[2023-11-02 14:47] LABS: Microalbumin Creatinine Ratio <8 mg/g Cr (0-30)
== END | disposition home or self-care (01) ==
LOC: LABWHC1 08:46
PROVIDERS: ATTEND Internal Medicine Endocrinology, Diabetes & Metabolism
DX: E11.9 Type 2 diabetes mellitus without complications (principal)
CPT/HCPCS: 36415; 80053; 80061; 82043; 82570; 83036; 84443

== ENCOUNTER → 2024-02-08 | Outpatient (CLI) | payer MEDICAID ==
[2024-02-08 13:35] LABS: Microalbumin Creatinine Ratio <9 mg/g Cr (0-30)
[2024-02-08 13:50] LABS: ALT 17 U/L (8-44); AST 20 U/L (13-35); Albumin 4.5 g/dL (3.8-4.9); Albumin/Globulin Ratio 1.88 Ratio (1.60-3.17); Alkaline Phosphatase 68 U/L (41-126); Blood Urea Nitrogen 14.8 mg/dL (9.0-27.0); Calcium 9.5 mg/dL (8.7-10.3); Carbon Dioxide 25.2 mmol/L (21.6-31.8); Chloride 103 mmol/L (96-109); Chol/HDL Ratio 3.06 Ratio; Globulin 2.4 g/dL (1.6-3.3); Glucose 112 mg/dL (70-110); LDL Cholesterol,Calculated 97.5 mg/dL (0.0-131.0); Potassium 4.6 mmol/L (3.5-5.5); Sodium 139 mmol/L (135-145); Total Bilirubin 0.6 mg/dL (0.3-1.2); Total Protein 6.9 g/dL (6.2-8.2); VLDL Calculation 10.94 mg/dL (5.00-40.00)
== END | disposition home or self-care (01) ==
LOC: LABWHC1 08:34
PROVIDERS: ATTEND Internal Medicine Endocrinology, Diabetes & Metabolism
DX: E11.9 Type 2 diabetes mellitus without complications (principal)
CPT/HCPCS: 36415; 80053; 80061; 82043; 82570; 83036; 84443

== ENCOUNTER → 2024-08-21 | Outpatient (CLI) | payer MEDICAID ==
[2024-08-21 15:53] LABS: ALT 13 U/L (8-44); AST 18 U/L (13-35); Albumin 4.4 g/dL (3.8-4.9); Albumin/Globulin Ratio 1.83 Ratio (1.60-3.17); Alkaline Phosphatase 57 U/L (41-126); Blood Urea Nitrogen 13.2 mg/dL (9.0-27.0); Calcium 9.3 mg/dL (8.7-10.3); Carbon Dioxide 25.9 mmol/L (21.6-31.8); Chloride 106 mmol/L (96-109); Chol/HDL Ratio 3.15 Ratio; Globulin 2.4 g/dL (1.6-3.3); Glucose 101 mg/dL (70-110); LDL Cholesterol,Calculated 95.9 mg/dL (0.0-131.0); Potassium 4.9 mmol/L (3.5-5.5); Sodium 142 mmol/L (135-145); Total Bilirubin 0.4 mg/dL (0.3-1.2); Total Protein 6.8 g/dL (6.2-8.2)
[2024-08-21 19:11] LABS: Microalbumin Creatinine Ratio <11 mg/g Cr (0-30)
== END | disposition home or self-care (01) ==
LOC: LABWHC1 10:06
PROVIDERS: ATTEND Internal Medicine Endocrinology, Diabetes & Metabolism
DX: E11.65 Type 2 diabetes mellitus with hyperglycemia (principal)
CPT/HCPCS: 36415; 80053; 80061; 82043; 82570; 83036; 84443

== ENCOUNTER → 2024-11-28 | Outpatient (CLI) | payer MEDICAID ==
[2024-11-28 13:48] LABS: ALT 22 U/L (8-44); AST 18 U/L (13-35); Albumin 4.6 g/dL (3.8-4.9); Albumin/Globulin Ratio 1.64 Ratio (1.60-3.17); Alkaline Phosphatase 65 U/L (41-126); BUN/Creat Ratio 16.12 Ratio (12.00-20.00); Blood Urea Nitrogen 12.9 mg/dL (9.0-27.0); Calcium 9.5 mg/dL (8.7-10.3); Carbon Dioxide 24.3 mmol/L (21.6-31.8); Chloride 107 mmol/L (96-109); Chol/HDL Ratio 3.67 Ratio; Globulin 2.8 g/dL (1.6-3.3); Glucose 122 mg/dL (70-110); LDL Cholesterol,Calculated 129.6 mg/dL (0.0-131.0); Potassium 5.3 mmol/L (3.5-5.5); Sodium 141 mmol/L (135-145); Total Bilirubin 0.5 mg/dL (0.3-1.2); Total Protein 7.4 g/dL (6.2-8.2); VLDL Calculation 11.46 mg/dL (5.00-40.00)
== END | disposition home or self-care (01) ==
LOC: LABWHC1 09:32
PROVIDERS: ATTEND Internal Medicine Endocrinology, Diabetes & Metabolism
DX: E11.9 Type 2 diabetes mellitus without complications (principal); E03.8 Other specified hypothyroidism
CPT/HCPCS: 36415; 80053; 80061; 82043; 82570; 83036; 84443

== ENCOUNTER → 2024-12-14 | Outpatient (CLI) | payer MEDICAID ==
--- NOTE | 2024-12-15 08:10 | MM ---
Reason for Exam: Screening (asymptomatic). Baseline mammogram. Patient History: Menarche at age 11. Patient has no children. Mother had breast cancer, right, age 70. Mother tested for BRCA1 outcome was negative. Mother tested for BRCA2 outcome was negative. Last menstrual period: 12/08/2024 Risk Values: Lina 5 year model risk: 1.1%. NCI Lifetime model risk: 18.8%. Prior Study Comparison: Patient's first Mammogram. Tissue Density: The breasts are heterogeneously dense, which may obscure small masses. Findings: Analyzed By CAD. There is no suspicious group of microcalcifications or new suspicious mass in either breast. Overall Assessment: Benign, BI-RAD 2 Management: Screening Mammogram of both breasts in 1 year. . Patient should continue monthly self-breast exams. A clinical breast exam by your physician is recommended on an annual basis. This exam should not preclude additional follow-up of suspicious palpable abnormalities. Note on Lina scores and lifetime risk: 1. A Lina score greater than 3% is considered moderate risk. If this is the case, consider specialist referral to assess eligibility for a risk reducing agent. 2. If overall lifetime risk for the development of breast cancer is 20% or higher, the patient may qualify for future screening with alternating mammogram and breast MRI. [facility], , 12/15/2024 8:07 AM. Electronically signed and approved by: Oliverio Loredo M.D. Radiologis
== END | disposition home or self-care (01) ==
LOC: RADMAMWWP 15:36
PROVIDERS: ATTEND Family Medicine
DX: Z12.31 Encounter for screening mammogram for malignant neoplasm of breast (principal); R92.333 Mammographic heterogeneous density, bilateral breasts; Z80.3 Family history of malignant neoplasm of breast
CPT/HCPCS: 77063; 77067

== ENCOUNTER 2025-03-03 05:13 | Emergency (ER) | payer MEDICAID ==
[2025-03-03 05:20] VITALS: TEMP 97.3
--- NOTE | 2025-03-03 07:16 | ED ---
Nausea/Vomiting/Diarrhea HPI - General Chief complaint: Nausea/Vomiting/Diarrhea Stated complaint: NVD Time Seen by Provider: 03/03/25 05:33 Source: patient, RN notes reviewed Mode of arrival: ambulatory Limitations: no limitations - History of Present Illness Initial comments: 39-year-old female presents emergency department chief complaint nausea, diar brigida. Patient states does not feel well recent. Denies any. She has no localized abdominal pain. Patient states she is cannot get symptoms calm down she sometimes she just gets very overheated describes the symptoms denies chest pain palpitations no current headache no back pain no flank pain or dysuria. - Related Data Home Medications Medication Instructions Recorded Confirmed Levothyroxine Sodium [Synthroid] 150 mcg PO SUTUWEFRSA 04/15/18 08/24/20 metFORMIN HCL [metFORMIN HCL ER] 750 mg PO BID 04/15/18 08/24/20 Candesartan Cilexetil 12 mg PO DAILY 08/20/20 08/24/20 Dulaglutide [Trulicity] 1.5 mg SQ INGRAM 08/20/20 08/24/20 Levothyroxine Sodium [Synthroid] 175 mcg PO MOTH 08/20/20 08/24/20 Albuterol Inhaler [Ventolin Hfa 2 puff INHALATION RT-QID 08/24/20 08/24/20 Inhaler] Previous Rx's Medication Instructions Recorded Benzonatate [Tessalon Perles] 200 mg PO Q8H PRN #15 capsule 08/20/20 Zinc Sulfate [Orazinc] 220 mg PO DAILY #30 cap 08/29/20 Ondansetron Odt [Zofran Odt] 4 mg PO Q8HR PRN #14 tab 09/28/23 Allergies Allergy/AdvReac Type Severity Reaction Status Date / Time lisinopril Allergy Anaphylaxis Verified 03/03/25 05:18 Sulfa (Sulfonamide Allergy Rash/Hives Verified 03/03/25 05:18 Antibiotics) Review of Systems ROS Statement: Those systems with pertinent positive or pertinent negative responses have been documented in the HPI. ROS Other: All systems not noted in ROS Statement are negative. Past Medical History Past Medical History: Diabetes Mellitus, Thyroid Disorder Additional Past Medical History / Comment(s): type 2 DM History of Any Multi-Drug Resistant Organisms: None Reported Past Surgical History: Cholecystectomy Past Anesthesia/Blood Transfusion Reactions: No Reported Reaction Past Psychological History: Depression Smoking Status: Never smoker Past Alcohol Use History: None Reported Past Drug Use History: None Reported - Past Family History Father Family Medical History: Diabetes Mellitus Sister(s) Family Medical History: Thyroid Disorder General Exam Limitations: no limitations General appearance: alert, in no apparent distress Head exam: Present: atraumatic, normocephalic, normal inspection Eye exam: Present: normal appearance, PERRL, EOMI. Absent: scleral icterus, conjunctival injection, periorbital swelling ENT exam: Present: normal exam, normal oropharynx, mucous membranes moist Neck exam: Present: normal inspection, full ROM. Absent: tenderness, meningismus, lymphadenopathy Respiratory exam: Present: normal lung sounds bilaterally. Absent: respiratory distress, wheezes, rales, rhonchi, stridor Cardiovascular Exam: Present: normal rhythm, tachycardia, normal heart sounds. Absent: systolic murmur, diastolic murmur, rubs, gallop, clicks GI/Abdominal exam: Present: soft, normal bowel sounds. Absent: distended, tenderness, guarding, rebound, rigid Course Vital Signs 03/03/25 05:18 Temperature 97.3 F L Pulse Rate 107 H Respiratory 18 Rate Blood Pressure 138/85 O2 Sat by Pulse 99 Oximetry Medical Decision Making - Medical Decision Making Was pt. sent in by a medical professional or institution ([facility]NC[facility] Miranda, [employer], urgent care, hospital, or care home...) When possible be specific @ -No Did you speak to anyone other than the patient for history (EMS, parent, family, police, friend...)? What history was obtained from this source @ -No Did you review nursing and triage notes (agree or disagree)? Why? @ -I reviewed and agree with nursing and triage notes Were old charts reviewed (outside hosp., previous admission, EMS record, old EKG, old radiological studies, urgent care reports/EKG's, care home records)? Report findings @ -No old charts were reviewed Differential Diagnosis (chest pain, altered mental status, abdominal pain women, abdominal pain men, vaginal bleeding, weakness, fever, dyspnea, syncope, headache, dizziness, GI bleed, back pain, seizure, CVA, palpatations, mental health, musculoskeletal)? @ -Differential Abdominal Pain Women: Appendicitis, Cholecystitis, diverticulosis, ischemic bowel, pancreatitis, hepatitis, UTI, gastroenteritis, AAA, incarcerated hernia, bowel obstruction, constipation, inflammatory bowel, hepatitis, peptic ulcer disease, splenic infarction, perforated viscus, vulvitis, ovarian torsion, PID, kidney stone, placenta abruption, this is not meant to be an all-inclusive list EKG interpreted by me (3pts min.). @ -None X-rays interpreted by me (1pt min.). @ -None done CT interpreted by me (1pt min.). @ -None done U/S interpreted by me (1pt. min.). @ -None done What testing was considered but not performed or refused? (CT, X-rays, U/S, labs)? Why? @ -None What meds were considered but not given or refused? Why? @ -None Did you discuss the management of the patient with other professionals (professionals i.e. , PA, [employer], lab, RT, psych nurse, social media marketing manager, vacuum closing machine operator, teacher, accounting officer, mental health case manager)? Give summary @ -No Was smoking cessation discussed for >3mins.? @ -No Was critical care preformed (if so, how long)? @ -No Were there social determinants of health that impacted care today? How? (Homelessness, low income, unemployed, alcoholism, drug addiction, transporta tion, low edu. Level, literacy, decrease access to med. care, nursing home, rehab)? @ -No Was there de-escalation of care discussed even if they declined (Discuss DNR or withdrawal of care, Hospice)? DNR status @ -No What co-morbidities impacted this encounter? (DM, HTN, Smoking, COPD, CAD, Cancer, CVA, ARF, Chemo, Hep., AIDS, mental health diagnosis, sleep apnea, morbid obesity)? @ -None Was patient admitted / discharged? Hospital course, mention meds given and route, prescriptions, significant lab abnormalities, going to OR and other pertinent info. @ -Discharge patient laboratory studies unremarkable. Patient does feel slightly improved. Patient discharged in stable condition and return for as discussed. Undiagnosed new problem with uncertain prognosis? @ -No Drug Therapy requiring intensive monitoring for toxicity (Heparin, Nitro, Insulin, Cardizem)? @ -No Were any procedures done? @ -No Diagnosis/symptom? @ -Nausea vomiting diarrhea Acute, or Chronic, or Acute on Chronic? @ -Acute Uncomplicated (without systemic symptoms) or Complicated (systemic symptoms)? @ -Complicated Side effects of treatment? @ -No Exacerbation, Progression, or Severe Exacerbation? @ -No Poses a threat to life or bodily function? How? (Chest pain, [place], [place], pneumonia, PE, COPD, DKA, ARF, appy, cholecystitis, CVA, Diverticulitis, Homicidal, Suicidal, threat to staff... and all critical care pts) @ -No - Lab Data Result diagrams: 03/03/25 07:34 03/03/25 07:34 Lab Results 03/03/25 03/03/25 03/03/25 Range/Units 07:34 07:34 07:40 WBC 8.36 (4.50-10.00) 10*3/uL RBC 4.73 (4.10-5.20) 10*6/uL Hgb 14.8 (12.0-15.0) g/dL Hct 43.1 (37.2-46.3) % MCV 91.1 (80.0-97.0) fL MCH 31.3 (27.0-32.0) pg MCHC 34.3 (32.0-37.0) g/dL Plt Count 243 (140-440) 10*3/uL MPV 10.5 (9.5-12.2) fL Immature Gran % (Auto) 0.4 % Neutrophils % 82.4 % Lymphocytes % 11.0 % Monocytes % 4.8 % Eosinophils % 0.8 % Basophils % 0.6 % Immature Gran # 0.03 (0.00-0.04) 10*3/uL Neutrophils # 6.89 (1.80-7.70) 10*3/uL Lymphocytes # 0.92 (0.90-5.00) 10*3/uL Monocytes # 0.40 (0.20-1.00) 10*3/uL Eosinophils # 0.07 (0.04-0.35) 10*3/uL Basophils # 0.05 (0.00-0.10) 10*3/uL Sodium 138 (137-145) mmol/L Potassium 4.4 (3.5-5.1) mmol/L Chloride 105 (98-107) mmol/L Carbon Dioxide 20 L (22-30) mmol/L Anion Gap 13 mmol/L BUN 15 (7-17) mg/dL Creatinine 0.65 (0.52-1.04) mg/dL Est GFR (CKD-EPI)AfAm >90 (>60 ml/min/1.73 sqM) Est GFR (CKD-EPI)NonAf >90 (>60 ml/min/1.73 sqM) Glucose 129 H (74-99) mg/dL Calcium 9.1 (8.4-10.2) mg/dL Total Bilirubin 1.1 (0.2-1.3) mg/dL AST 36 (14-36) U/L ALT 25 (4-34) U/L Alkaline Phosphatase 71 (38-126) U/L Total Protein 7.9 (6.3-8.2) g/dL Albumin 4.9 (3.5-5.0) g/dL Lipase 73 (23-300) U/L Urine Color Yellow Urine Appearance Clear (Clear) Urine pH 5.5 (5.0-8.0) Ur Specific [place] 1.035 (1.001-1.035) Urine Protein Negative (Negative) Urine Glucose (UA) 4+ H (Negative) Urine Ketones Negative (Negative) Urine Blood Negative (Negative) Urine Nitrite Negative (Negative) Urine Bilirubin Negative (Negative) Urine Urobilinogen <2.0 (<2.0) mg/dL Ur Leukocyte Esterase Negative (Negative) Disposition Clinical Impression: Gastroenteritis Disposition: HOME SELF-CARE Instructions (If sedation given, give patient instructions): Acute Nausea and Vomiting (ED), Acute Diarrhea (ED) Additional Instructions: Please return to the Emergency Department if symptoms worsen or any other concerns. Is patient prescribed a controlled substance at d/c from ED?: No Referrals: Joe South DO [Primary Care Provider] - 1-2 days Time of Disposition: 09:14
[2025-03-03] MEDS: FAMOTIDINE 20 MG/2 ML VIAL IV STA (07:35)
[2025-03-03] MEDS: ONDANSETRON 4 MG/2 ML VIAL IVP STA (07:35)
[2025-03-03] MEDS: SODIUM CHLORIDE 0.9% 2,000 ML IV STA (07:37)
[2025-03-03 07:56] LABS: Appearance,Urine Clear (Clear); Bilirubin,Urine Negative (Negative); Blood,Urine Negative (Negative); Color,Urine Yellow; Glucose,Urine (UA) 4+ (Negative); Ketones,Urine Negative (Negative); Leukocyte Esterase,Urine Negative (Negative); Nitrite,Urine Negative (Negative); PH, Urine 5.5 (5.0-8.0); Protein,Urine Negative (Negative); Specific Gravity,Urine 1.035 (1.001-1.035); Urobilinogen,Urine <2.0 mg/dL (<2.0)
[2025-03-03 08:15] LABS: Basophils # (A) 0.05 10*3/uL (0.00-0.10); Basophils % (A) 0.6 %; Eosinophils # (A) 0.07 10*3/uL (0.04-0.35); Eosinophils % (A) 0.8 %; HCT 43.1 % (37.2-46.3); HGB 14.8 g/dL (12.0-15.0); Lymphocytes # (A) 0.92 10*3/uL (0.90-5.00); MCH 31.3 pg (27.0-32.0); MCHC 34.3 g/dL (32.0-37.0); MCV 91.1 fL (80.0-97.0); Mean Platelet Volume 10.5 fL (9.5-12.2); Monocytes % (A) 4.8 %; Neutrophils # (A) 6.89 10*3/uL (1.80-7.70); Neutrophils % (A) 82.4 %; Platelet Count 243 10*3/uL (140-440); RBC 4.73 10*6/uL (4.10-5.20); RDW 12.4 % (11.5-14.5); WBC 8.36 10*3/uL (4.50-10.00)
[2025-03-03 08:36] LABS: ALT 25 U/L (4-34); African American GFR (CKD) >90 (>60 ml/min/1.73 sqM); Albumin 4.9 g/dL (3.5-5.0); Anion Gap 13 mmol/L; Blood Urea Nitrogen 15 mg/dL (7-17); Calcium 9.1 mg/dL (8.4-10.2); Carbon Dioxide 20 mmol/L (22-30); Chloride 105 mmol/L (98-107); Glucose 129 mg/dL (74-99); Lipase 73 U/L (23-300); Non-African American GFR(CKD) >90 (>60 ml/min/1.73 sqM); Sodium 138 mmol/L (137-145); Total Bilirubin 1.1 mg/dL (0.2-1.3); Total Protein 7.9 g/dL (6.3-8.2)
[2025-03-03 08:43] LABS: AST 36 U/L (14-36); Alkaline Phosphatase 71 U/L (38-126); Potassium 4.4 mmol/L (3.5-5.1)
[2025-03-03] MEDS: DIPHENOX-ATROP STARTER PACK 8 TAB BTL PO STA (09:19)
[2025-03-03] MEDS: DIPHENOX-ATROP 2.5-0.025 MG 1 EACH TAB PO STA (09:27)
[2025-03-03 09:33] VITALS: BP 111/79; PULSE 72; RESP 16
== END 2025-03-03 09:34 | disposition home or self-care (01) ==
LOC: EC 05:13
DX: K52.9 Noninfective gastroenteritis and colitis, unspecified (principal); Z88.2 Allergy status to sulfonamides; Z88.8 Allergy status to other drugs, medicaments and biological substances
CPT/HCPCS: 36415; 80053; 83690; 85025; 81003; 99284; 96374; 96375; 96361; J2405; J1308

== ENCOUNTER → 2025-03-06 | Outpatient (CLI) | payer MEDICAID ==
[2025-03-06 13:17] LABS: Microalbumin Creatinine Ratio <4 mg/g Cr (0-30)
[2025-03-06 13:33] LABS: ALT 21 U/L (8-44); AST 21 U/L (13-35); Albumin 4.3 g/dL (3.8-4.9); Albumin/Globulin Ratio 1.65 Ratio (1.60-3.17); Alkaline Phosphatase 68 U/L (41-126); BUN/Creat Ratio 13.57 Ratio (12.00-20.00); Blood Urea Nitrogen 9.5 mg/dL (9.0-27.0); Calcium 9.2 mg/dL (8.7-10.3); Carbon Dioxide 25.3 mmol/L (21.6-31.8); Chloride 105 mmol/L (96-109); Chol/HDL Ratio 3.47 Ratio; Globulin 2.6 g/dL (1.6-3.3); Glucose 98 mg/dL (70-110); Potassium 4.4 mmol/L (3.5-5.5); Sodium 141 mmol/L (135-145); Total Bilirubin 0.4 mg/dL (0.3-1.2); Total Protein 6.9 g/dL (6.2-8.2)
== END | disposition home or self-care (01) ==
LOC: LABWHC1 09:24
PROVIDERS: ATTEND Internal Medicine Endocrinology, Diabetes & Metabolism
DX: E11.9 Type 2 diabetes mellitus without complications (principal); E03.8 Other specified hypothyroidism
CPT/HCPCS: 36415; 80053; 80061; 82043; 82570; 83036; 84443